=== PATIENT | female | born 1935 | race Caucasian/White ===

== ENCOUNTER 2016-08-31 13:20 | Inpatient (IN) | payer MEDICARE ==
[~2016-08-31] VITALS: Ht 157.5 cm; Wt 55.9 kg
[~2016-08-31 13:20] MED LIST: CARV3.122 PO; GABA800T2 PO; MUPI15CR TP; OXYC30TA PO
[2016-08-31 15:35] VITALS: BP 142/71
[2016-08-31] MEDS ORDERED: MORPHINE SULFATE 10 MG/ML VIAL. SQ PRN (16:30)
[2016-08-31] MEDS ORDERED: POLYETHYLENE GLYCOL 3350 17 GM PACKET. PO PRN (16:30)
[2016-08-31] MEDS ORDERED: ACETAMINOPHEN 500 MG TABLET PO PRN (16:30)
[2016-08-31] MEDS ORDERED: DOCUSATE SODIUM 100 MG CAPSULE PO PRN (16:30)
[2016-08-31] MEDS ORDERED: NITROGLYCERIN SUBLINGUAL 0.4 MG BOTTLE OF 25. SL PRN (16:30)
[2016-08-31] MEDS ORDERED: ONDANSETRON PF 4 MG/2 ML VIAL. IV PRN (16:30)
[2016-08-31] MEDS ORDERED: DOCU250C PO (17:50)
[2016-08-31] MEDS ORDERED: ACET500T33 PO (17:50)
[2016-08-31] MEDS ORDERED: ASPI-482 PO (17:50)
[2016-08-31] MEDS ORDERED: MIRA25TA PO (17:50)
[2016-08-31] MEDS ORDERED: ALPR1TAB6 PO (17:50)
[2016-08-31] MEDS ORDERED: CYCL10TA2 PO (17:50)
[2016-08-31] MEDS ORDERED: FERR-26 PO (17:50)
[2016-08-31] MEDS ORDERED: NITR0.4T SL (17:50)
[2016-08-31] MEDS ORDERED: POLY17PO5 PO (17:50)
[2016-08-31] MEDS ORDERED: POTA10TA10 PO (17:50)
[2016-08-31] MEDS ORDERED: FENT1PAT17 TD (17:50)
[2016-08-31] MEDS ORDERED: CEPH-264 PO (17:50)
[2016-08-31] MEDS ORDERED: FURO-68 PO (17:50)
[2016-08-31 18:49] LABS: BASO # 0.1 x10^3/uL (0.0-0.2); BASO % 0 % (0-3); EOS % 1 % (0-3); HEMATOCRIT 24.1 % (36.0-47.0); HEMOGLOBIN 7.3 g/dL (12.0-15.5); LYMPH # 0.9 x10^3/uL (1.0-4.8); LYMPH % 7 % (24-48); MEAN CORPUSCULAR HEMOGLOBIN 20 pg (25-35); MEAN CORPUSCULAR HGB CONC 30 g/dL (31-37); MEAN CORPUSCULAR VOLUME 67 fL (79-100); MONO % 5 % (0-9); NEUT % 87 % (31-73); PLATELET COUNT 506 x10^3/uL (140-400); RED BLOOD COUNT 3.58 x10^6/uL (3.50-5.40); RED CELL DISTRIBUTION WIDTH 19.3 % (11.5-14.5); WHITE BLOOD COUNT 14.2 x10^3/uL (4.0-11.0)
[2016-08-31 19:00] VITALS: BP 118/68
[2016-08-31] MEDS: CARVEDILOL 3.125 MG TABLET PO SCH (19:00)
[2016-08-31 19:05] LABS: % SAT IRON 4 % (15-34); IRON,SERUM 8 ug/dL (50-170)
[2016-08-31 19:17] LABS: ALBUMIN 2.2 g/dL (3.4-5.0); ALBUMIN/GLOBULIN RATIO 0.6 (1.0-1.7); CALCIUM 8.5 mg/dL (8.5-10.1); CREATININE 0.6 mg/dL (0.6-1.0); GFR 95.7; POTASSIUM 3.5 mmol/L (3.5-5.1); TOTAL BILIRUBIN 0.3 mg/dL (0.2-1.0)
[2016-08-31] MEDS: OXYCODONE IR 5 MG TABLET. PO PRN (19:20)
[2016-08-31 19:28] LABS: % EOS 1 % (0-5); ANISOCYTOSIS SLIGHT; HYPOCHROMIA MARKED; PLT ESTIMATE INCREASED (ADEQUATE); POIKILOCYTOSIS SLIGHT
[2016-08-31 19:29] LABS: MICROCYTOSIS MARKED; OVALOCYTES OCC
[2016-08-31] MEDS: VANCOMYCIN PER PHARMACY MC PRN (19:44)
[2016-08-31] MEDS: VANCOMYCIN 750 MG in IV NORMAL SALINE 250ML 250 ML IV SCH (20:25)
[2016-08-31] MEDS: ALPRAZOLAM 1 MG TABLET PO PRN (20:31)
[2016-08-31] MEDS: GABAPENTIN 400 MG CAPSULE. PO SCH (20:31)
[2016-08-31] MEDS: MEROPENEM 500 MG in IV NORMAL SALINE 50ML 50 ML IV SCH (21:59)
[2016-08-31] MEDS: METRONIDAZOLE 500mg PREMIX 100 ML IV SCH (21:59)
[2016-08-31 23:14] VITALS: BP 110/63
[2016-09-01 03:00] VITALS: BP 108/55
[2016-09-01] MEDS: METRONIDAZOLE 500mg PREMIX 100 ML IV SCH (05:12)
[2016-09-01] MEDS: MEROPENEM 500 MG in IV NORMAL SALINE 50ML 50 ML IV SCH ×3 (05:13→22:00)
[2016-09-01 07:00] VITALS: BP 100/50
[2016-09-01] MEDS: POTASSIUM CHLORIDE 20 MEQ TABLET.ER. PO SCH (08:00)
[2016-09-01] MEDS: CARVEDILOL 3.125 MG TABLET PO SCH ×2 (08:00→18:56)
[2016-09-01] MEDS: FENTANYL 50MCG/HR PATCH. TD SCH (08:43)
--- NOTE | 2016-09-01 08:49 | PDOC2 ---
AGATHA NERI Mel SOFTWARE DEVELOPMENT TEST ENGINEER 09/01/16 0849: CONSULT Date of Consult Date of Consult DATE: 09/01/16 TIME: 08:41 Reason for Consult Reason for Consult: changes to splenic flexure Referring Physician Referring Physician: Dr ulloa Identification/Chief Complaint Chief Complaint UTI, back pain Source Source: Caregiver, Chart review, Patient History of Present Illness Reason for Visit: Confusion in patient, I spoke with her daughter Laura on the phone(no dementia, however does become acutely confused with UTI/s). 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 On Thursday she complained of worsening back pain and generalized abdominal pain. Her daughter was concerned worsening UTI. Chronic constipation, last BM small thursday. She has not had a colonoscopy, refused in past. No nausea or emesis, low appetite but still eating Past Medical History Cardiovascular: CAD, HTN, ND Musculoskeletal: low back pain Past Surgical History Past Surgical History: Hysterectomy, Other (exploratory laparotomy, many years ago, daughter not sure for what) Family History Family History: Other (no colon cancer, IBD daughter is aware of) Social History No ALCOHOL: none Drugs: None Lives: with Family Current Medications Current Medications Current Medications Oxycodone HCl (Roxicodone) 20 mg PRN Q8HRS PRN PO PAIN Last administered on 19:20; Start 08/31/16 at 16:30 Furosemide (Lasix) 40 mg DAILY PO ; Start 09/01/16 at 09:00 Carvedilol (Coreg) 3.125 mg BIDWMEALS PO ; Start 08/31/16 at 19:00 Alprazolam (Xanax) 1 mg PRN Q6HRS PRN PO ANXIETY / AGITATION Last administered on 08/31/16 20:31; Start 08/31/16 at 16:30 Gabapentin (Neurontin) 400 mg BID PO Last administered on 08/31/16 20:31; Start 08/31/16 at 21:00 Docusate Sodium (Colace) 100 mg PRN QHS PRN PO CONSTIPATION; Start 08/31/16 at 16:30 Acetaminophen (Tylenol) 500 mg PRN Q4HRS PRN PO MILD PAIN / TEMP; Start at 16:30 Fentanyl (Duragesic 50mcg/ Hr Patch) 1 patch Q3DAYS TD ; Start 09/01/16 at 09:00 Fentanyl Citrate 50 mcg 50 mcg PRN Q3HRS PRN IV PAIN; Start 08/31/16 at 16:30 Meropenem 500 mg/ Sodium Chloride 50 ml @ 100 mls/hr Q8HRS IV Last administered on 09/01/16 05:13; Start 08/31/16 at 22:00 Metronidazole (FLAGYL 500Mmg PREMIX) 100 ml @ 100 mls/hr Q8HRS IV Last administered on 09/01/16 05:12; Start 08/31/16 at 22:00 Mirabegron (Myrbetriq) 25 mg DAILY PO ; Start 09/01/16 at 09:00 Morphine Sulfate 5 mg PRN QID PRN SQ PAIN; Start 08/31/16 at 16:30 Nitroglycerin (Nitrostat) 0.4 mg PRN Q15MIN PRN SL CHEST PAIN; Start 08/31/16 at 16:30 Ondansetron HCl (Zofran) 4 mg PRN Q4HRS PRN IV NAUSEA/VOMITING; Start 08/31/16 at 16:30 Polyethylene Glycol (miraLAX PACKET) 17 gm PRN DAILY PRN PO CONSTIPATION; Start 08/31/16 at 16:30 Potassium Chloride (Klor-Con) 20 meq DAILYWBKFT PO ; Start 09/01/16 at 08:00 Vancomycin HCl 1 each 1 each PRN DAILY PRN MC SEE COMMENTS Last administered on 08/31/16 19:44; Start 08/31/16 at 16:30 Vancomycin HCl/ Sodium Chloride (Iv Sodium Chloride 0.9% 250ml) 250 ml @ 250 mls/hr Q24H IV Last administered on 08/31/16 20:25; Start 08/31/16 at 20:00 Vancomycin HCl 1 each 1X ONCE MC ; Start 09/01/16 at 19:30; Stop 09/01/16 at 19 :31 Non-Formulary Medication 1 ea DAILY PO ; Start 09/01/16 at 09:00; Status UNV Active Scripts Active Reported Miralax (Polyethylene Glycol 3350) 17 Gm Powd.pack 1 Packet PO DAILY PRN FENTANYL 50mcg/hr (Fentanyl) 1 Each Patch.td72 1 Patch TD Q72H Myrbetriq (Mirabegron) 25 Mg Tab.er.24h 25 Mg PO DAILY Tylenol Extra Strength (Acetaminophen) 500 Mg Tablet 500 Mg PO PRN Docusate Sodium 250 Mg Capsule 250 Mg PO HS Alprazolam 1 Mg Tablet 1 Mg PO PRN Q6HRS PRN Cyclobenzaprine Hcl 10 Mg Tablet 1 Tab PO TID PRN Aspir 81 (Aspirin) 81 Mg Tablet.dr 1 Tab PO DAILY Lasix (Furosemide) 40 Mg Tablet 1 Tab PO DAILY Ferrous Sulfate 325 Mg Tablet 65 Mg PO DAILY Potassium Chloride 10 Meq Tablet.er 20 Meq PO DAILY Nitrostat (Nitroglycerin) 0.4 Mg Tab.subl 0.4 Mg SL PRN Q5MIN PRN Keflex (Cephalexin) 500 Mg Capsule 1 Cap PO TID Carvedilol 3.125 Mg Tablet 3.125 Mg PO BIDWMEALS Gabapentin 800 Mg Tablet 800 Mg PO TID Oxycodone Hcl 30 Mg Tablet 20 Mg PO PRN Q8HRS PRN Bactroban Cream (Mupirocin) 15 Gm Cream..g. 1 Tushar TP DAILY Allergies Allergies: Coded Allergies: Penicillins (Verified Allergy, Intermediate, Swelling, 08/31/16) amoxicillin (Verified Allergy, Intermediate, Swelling, 08/31/16) morphine (Verified Adverse Reaction, Intermediate, "makes her crazy", 08/31) "makes her crazy" ROS Review of System unable to obtain from patient due to mental status Physical Exam General: Cooperative, No acute distress HEENT: PERRLA, Mucous membr. moist/pink Lungs: Clear to auscultation, Normal air movement Heart: Regular rate, Normal S1, Normal S2, No murmurs Abdomen: Soft, Other (ND, mild tenderness to right lower abdomen, midline scar present) Extremities: No clubbing, No cyanosis Skin: No rashes, No breakdown Neuro: Normal speech, Sensation intact MUSCULOSKELETAL: No deformity, No swelling Vitals VITALS Vital Signs Date Time Temp Pulse Resp B/P Pulse Ox O2 Delivery O2 Flow Rate FiO2 09/01/16 07:00 98.5 75 16 100/50 93 Room Air 98.5 Labs Labs Laboratory Tests Test 08/31/16 18:30 White Blood Count 14.2x10^3/uL (4.0-11.0) Red Blood Count 3.58x10^6/uL (3.50-5.40) Hemoglobin 7.3g/dL (12.0-15.5) Hematocrit 24.1% (36.0-47.0) Mean Corpuscular Volume 67fL (79-100) Mean Corpuscular Hemoglobin 20pg (25-35) Mean Corpuscular Hemoglobin Concent 30g/dL (31-37) Red Cell Distribution Width 19.3% (11.5-14.5) Platelet Count 506x10^3/uL (140-400) Neutrophils (%) (Auto) 87% (31-73) Lymphocytes (%) (Auto) 7% (24-48) Monocytes (%) (Auto) 5% (0-9) Eosinophils (%) (Auto) 1% (0-3) Basophils (%) (Auto) 0% (0-3) Neutrophils # (Auto) 12.3x10^3uL (1.8-7.7) Lymphocytes # (Auto) 0.9x10^3/uL (1.0-4.8) Monocytes # (Auto) 0.7x10^3/uL (0.0-1.1) Eosinophils # (Auto) 0.2x10^3/uL (0.0-0.7) Basophils # (Auto) 0.1x10^3/uL (0.0-0.2) Segmented Neutrophils % 90% (35-66) Band Neutrophils % 2% (0-9) Lymphocytes % 6% (24-48) Monocytes % 1% (0-10) Eosinophils % 1% (0-5) Platelet Estimate Increased (ADEQUATE) Hypochromasia Marked Poikilocytosis Slight Anisocytosis Slight Microcytosis Marked Ovalocytes Occ Sodium Level 135mmol/L (136-145) Potassium Level 3.5mmol/L (3.5-5.1) Chloride Level 99mmol/L (98-107) Carbon Dioxide Level 27mmol/L (21-32) Anion Gap 9 (6-14) Blood Urea Nitrogen 7mg/dL (7-20) Creatinine 0.6mg/dL (0.6-1.0) Estimated GFR (Cockcroft-Gault) 95.7 BUN/Creatinine Ratio 12 (6-20) Glucose Level 110mg/dL (70-99) Calcium Level 8.5mg/dL (8.5-10.1) Iron Level 8ug/dL (50-170) Total Iron Binding Capacity 220ug/dL (250-450) Iron Saturation 4% (15-34) Ferritin 35ng/mL (8-252) Total Bilirubin 0.3mg/dL (0.2-1.0) Aspartate Amino Transf (AST/SGOT) 7U/L (15-37) Alanine Aminotransferase (ALT/SGPT) 11U/L (14-59) Alkaline Phosphatase 112U/L (46-116) Total Protein 6.0g/dL (6.4-8.2) Albumin 2.2g/dL (3.4-5.0) Albumin/Globulin Ratio 0.6 (1.0-1.7) Laboratory Tests Test 08/31/16 18:30 White Blood Count 14.2x10^3/uL (4.0-11.0) Red Blood Count 3.58x10^6/uL (3.50-5.40) Hemoglobin 7.3g/dL (12.0-15.5) Hematocrit 24.1% (36.0-47.0) Mean Corpuscular Volume 67fL (79-100) Mean Corpuscular Hemoglobin 20pg (25-35) Mean Corpuscular Hemoglobin Concent 30g/dL (31-37) Red Cell Distribution Width 19.3% (11.5-14.5) Platelet Count 506x10^3/uL (140-400) Neutrophils (%) (Auto) 87% (31-73) Lymphocytes (%) (Auto) 7% (24-48) Monocytes (%) (Auto) 5% (0-9) Eosinophils (%) (Auto) 1% (0-3) Basophils (%) (Auto) 0% (0-3) Neutrophils # (Auto) 12.3x10^3uL (1.8-7.7) Lymphocytes # (Auto) 0.9x10^3/uL (1.0-4.8) Monocytes # (Auto) 0.7x10^3/uL (0.0-1.1) Eosinophils # (Auto) 0.2x10^3/uL (0.0-0.7) Basophils # (Auto) 0.1x10^3/uL (0.0-0.2) Segmented Neutrophils % 90% (35-66) Band Neutrophils % 2% (0-9) Lymphocytes % 6% (24-48) Monocytes % 1% (0-10) Eosinophils % 1% (0-5) Platelet Estimate Increased (ADEQUATE) Hypochromasia Marked Poikilocytosis Slight Anisocytosis Slight Microcytosis Marked Ovalocytes Occ Sodium Level 135mmol/L (136-145) Potassium Level 3.5mmol/L (3.5-5.1) Chloride Level 99mmol/L (98-107) Carbon Dioxide Level 27mmol/L (21-32) Anion Gap 9 (6-14) Blood Urea Nitrogen 7mg/dL (7-20) Creatinine 0.6mg/dL (0.6-1.0) Estimated GFR (Cockcroft-Gault) 95.7 BUN/Creatinine Ratio 12 (6-20) Glucose Level 110mg/dL (70-99) Calcium Level 8.5mg/dL (8.5-10.1) Iron Level 8ug/dL (50-170) Total Iron Binding Capacity 220ug/dL (250-450) Iron Saturation 4% (15-34) Ferritin 35ng/mL (8-252) Total Bilirubin 0.3mg/dL (0.2-1.0) Aspartate Amino Transf (AST/SGOT) 7U/L (15-37) Alanine Aminotransferase (ALT/SGPT) 11U/L (14-59) Alkaline Phosphatase 112U/L (46-116) Total Protein 6.0g/dL (6.4-8.2) Albumin 2.2g/dL (3.4-5.0) Albumin/Globulin Ratio 0.6 (1.0-1.7) Assessment/Plan Assessment/Plan UTI, chronic back pain compression fracture CT findings--Aneurysmal change of the splenic flexure of the colon. This is nonspecific and can be secondary to chronic inflammation or a walled off perforation or lymphoma. Occasionally adenocarcinoma or metastatic cancer can causes appearance leukocytosis, wbc 14 anemia, chronic 7.[address] Mtz, GI consulted ALEX MTZ MD 09/01/16 1316: CONSULT Allergies Allergies: Coded Allergies: Penicillins (Verified Allergy, Intermediate, Swelling, 08/31/16) amoxicillin (Verified Allergy, Intermediate, Swelling, 08/31/16) morphine (Verified Adverse Reaction, Intermediate, "makes her crazy", 08/31) "makes her crazy" Assessment/Plan Assessment/Plan Reviewed, pt seen and examined independently by myself; Pts daughter and son in law present. Pt complains of back pain and left abdominal pain. The abdominal pain seems new and present over the last couple of days. Remainder of HPI noted; PMH/PSH/ROS/SH as above; exam: alert, oriented, no scleral icterus, no neck masses, lungs clear, heart RR and R, abdomen soft, tender with palpation in L side, no peritoneal signs, ext neg for edema. Labs and CT scan reviewed; focal abnormality in segment of left colon, ?etiology unknown. Recommend further evaluation, preferably with colonoscopy. GI following and defer to them AGATHA NERI APRN Sep 01, 2016 08:49 ALEX MTZ MD Sep 01, 2016 13:16
[2016-09-01] MEDS ORDERED: NON FORMULARY ITEM PO SCH (09:00)
[2016-09-01] MEDS: GABAPENTIN 400 MG CAPSULE. PO SCH ×3 (09:00→21:00)
[2016-09-01] MEDS: FUROSEMIDE 40 MG TABLET PO SCH (09:00)
[2016-09-01] MEDS: MIRABEGRON 25 MG TAB.ER.24H PO SCH (09:00)
--- NOTE | 2016-09-01 10:14 | PDOC2 ---
GI CONSULT Reason For Consult: Splenic flexure inflammation HPI: HPI: History from chart and staff as pt is confused and alone in room. 80 y/o female transferred from [facility] where she was seen for worsening back pain and UTI symptoms. CTs showed aneurysmal change on splenic flexure of the colon (ddx: non-specific, ?2/2 chronic inflammation or walled of perforation or lymphoma, or possibly adenocarcinoma or metastatic cancer) and T12 vertebral body compression fracture. Labs: WBC 14.2, Hgb 7.3, plt 506, iron 8, TIBC 220, sat 4. Home meds show ASA, iron. IR and surgery are also following. 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 Per RN, c/o back and leg pain this morning. Per chart, some decreased appetite w/o n/v and h/o constipation w/ last BM on 08/29. No reports of bleeding. No previous colonoscopy. PMH: PMH: spinal aneurysm, CA, HTN, CAD s/p stents, anxiety, back pain, UTIs/urinary incontinence w/ catheter, hysterectomy, exploratory lap FH: Family History: Cancer (no GI cancers) Social History: Smoke: No ALCOHOL: none Drugs: None ROS: GI: Per HPI : +dysuria NEURO: +confusion MSK: +pain VItals: Vitals: Vital Signs Date Time Temp Pulse Resp B/P Pulse Ox O2 Delivery O2 Flow Rate FiO2 09/01/16 07:00 98.5 75 16 100/50 93 Room Air 98.5 Labs: Labs: Laboratory Tests Test 08/31/16 18:30 White Blood Count 14.2x10^3/uL (4.0-11.0) Red Blood Count 3.58x10^6/uL (3.50-5.40) Hemoglobin 7.3g/dL (12.0-15.5) Hematocrit 24.1% (36.0-47.0) Mean Corpuscular Volume 67fL (79-100) Mean Corpuscular Hemoglobin 20pg (25-35) Mean Corpuscular Hemoglobin Concent 30g/dL (31-37) Red Cell Distribution Width 19.3% (11.5-14.5) Platelet Count 506x10^3/uL (140-400) Neutrophils (%) (Auto) 87% (31-73) Lymphocytes (%) (Auto) 7% (24-48) Monocytes (%) (Auto) 5% (0-9) Eosinophils (%) (Auto) 1% (0-3) Basophils (%) (Auto) 0% (0-3) Neutrophils # (Auto) 12.3x10^3uL (1.8-7.7) Lymphocytes # (Auto) 0.9x10^3/uL (1.0-4.8) Monocytes # (Auto) 0.7x10^3/uL (0.0-1.1) Eosinophils # (Auto) 0.2x10^3/uL (0.0-0.7) Basophils # (Auto) 0.1x10^3/uL (0.0-0.2) Segmented Neutrophils % 90% (35-66) Band Neutrophils % 2% (0-9) Lymphocytes % 6% (24-48) Monocytes % 1% (0-10) Eosinophils % 1% (0-5) Platelet Estimate Increased (ADEQUATE) Hypochromasia Marked Poikilocytosis Slight Anisocytosis Slight Microcytosis Marked Ovalocytes Occ Sodium Level 135mmol/L (136-145) Potassium Level 3.5mmol/L (3.5-5.1) Chloride Level 99mmol/L (98-107) Carbon Dioxide Level 27mmol/L (21-32) Anion Gap 9 (6-14) Blood Urea Nitrogen 7mg/dL (7-20) Creatinine 0.6mg/dL (0.6-1.0) Estimated GFR (Cockcroft-Gault) 95.7 BUN/Creatinine Ratio 12 (6-20) Glucose Level 110mg/dL (70-99) Calcium Level 8.5mg/dL (8.5-10.1) Iron Level 8ug/dL (50-170) Total Iron Binding Capacity 220ug/dL (250-450) Iron Saturation 4% (15-34) Ferritin 35ng/mL (8-252) Total Bilirubin 0.3mg/dL (0.2-1.0) Aspartate Amino Transf (AST/SGOT) 7U/L (15-37) Alanine Aminotransferase (ALT/SGPT) 11U/L (14-59) Alkaline Phosphatase 112U/L (46-116) Total Protein 6.0g/dL (6.4-8.2) Albumin 2.2g/dL (3.4-5.0) Albumin/Globulin Ratio 0.6 (1.0-1.7) Allergies: Coded Allergies: Penicillins (Verified Allergy, Intermediate, Swelling, 08/31/16) amoxicillin (Verified Allergy, Intermediate, Swelling, 08/31/16) morphine (Verified Adverse Reaction, Intermediate, "makes her crazy", 08/31) "makes her crazy" Medications: Current Medications Medications (Trade) Dose Ordered Sig/Kellee Route PRN Reason Start Time Stop Time Status Last Admin Dose Admin Oxycodone HCl (Roxicodone) 20 mg PRN Q8HRS PRN PO PAIN 08/31/16 16:30 08/31/16 19:20 Alprazolam (Xanax) 1 mg PRN Q6HRS PRN PO ANXIETY / AGITATION 08/31/16 16:30 08/31/16 20:31 Gabapentin (Neurontin) 400 mg BID PO 08/31/16 21:00 08/31/16 20:31 Fentanyl 1 patch 1 patch Q3DAYS TD 09/01/16 09:00 09/01/16 08:43 Meropenem 500 mg/ Sodium Chloride 50 ml @ 100 mls/hr Q8HRS IV 08/31/16 22:00 09/01/16 05:13 Metronidazole (FLAGYL 500Mmg PREMIX) 100 ml @ 100 mls/hr Q8HRS IV 08/31/16 22:00 09/01/16 05:12 Vancomycin HCl 1 each 1 each PRN DAILY PRN MC SEE COMMENTS 08/31/16 16:30 08/31/16 19:44 Vancomycin HCl/ Sodium Chloride (Iv Sodium Chloride 0.9% 250ml) 250 ml @ 250 mls/hr Q24H IV 08/31/16 20:00 08/31/16 20:25 Imaging: Imaging: CT A/P w/ IV contrast 08/30/16 1. Basilar pulmonary infiltrates likely discoid atelectasis. 2. Cholelithiasis w/o cholecystitis. 3. Aneurysmal change on splenic flexure of the colon (ddx: non-specific, ?2/2 chronic inflammation or walled of perforation or lymphoma, or possibly adenocarcinoma or metastatic cancer). CT L-spine 1. T12 vertebral body compression fracture. 2. Moderate degenerate changes and postsurgical changes. PE: GEN: NAD LUNGS: clear anteriorly HEART: S1S2 ABD: BS+, LUQ tender EXTREMITY: No edema NEURO/PSYCH: confused A/P: A/P: Chronic back pain w/ UTI, compression fracture -on atbx, IR consulted Abnormal CT A/P -aneurysmal change on splenic flexure of the colon (ddx: non-specific ?2/2 chronic inflammation or walled of perforation or lymphoma, possibly adenocarcinoma/metastatic cancer) -surgery also following, NPO ROBBIE, leukocytosis H/o constipation CRC screen -no previous colonoscopy -- Will review w/ Dr. Plascencia - needs colonoscopy eventually, concerning for cancer w/ ROBBIE. MAURO BARBA Sep 01, 2016 10:13
[2016-09-01] MEDS ORDERED: GADOBUTROL 7.5 MMOL/7.5 ML VIAL IV ONE (11:15)
[2016-09-01 11:50] VITALS: BP_SYST 51
--- NOTE | 2016-09-01 11:54 | PDOC ---
Provider Note Provider Note IR Note: Asked to consider T12 vertebral augmentation---thank you. 80 YO female with recent onset of significant LBP. MRI this AM revealed acute/subacute T12 compression fracture, which would be amenable to kyphoplasty. Case discussed with Dr Cade. We are in agreement to defer elective kyphoplasty, until UTI and GI issues have been addressed. ID, GI, and General surgery have been consulted. Will follow. JAIME RITTER MD Sep 01, 2016 11:54
--- NOTE | 2016-09-01 11:55 | RAD ---
MR LUMBAR SPINE HISTORY:prior study PMIC....GAVE 5ML GADAVIST...PT C/O LBP AND EVAL T12 COMP FXReason: T 12 compression fx;nurse to cancel and reorder for 09/01. Instructions: / History: COMPARISON: MRI lumbar spine from 05/28/2016 Technique: Sagittal T2, sagittal STIR, and sagittal T1-weighted images were obtained. Additional axial T1 and T2 weighted imaging was also performed. Post contrast T1 weighted images were performed after intravenous administration of gadolinium based contrast. FINDINGS: There is a superior endplate compression fracture at T12 with very mild volume loss. There is no retropulsion. Edema is noted suggesting that this is an acute process. No other compression fractures are identified. There is retrolisthesis of L4 on L5. There is subtle grade 1 anterolisthesis of L5 on S1. Visualized intra-abdominal contents demonstrates cholelithiasis. There is also a left renal cortical cyst. Again noted is a ventral epidural cyst that extends from the level of L2 superiorly beyond the field of view into the thoracic spinal canal. This is unchanged compared to the previous exam from 05/28/2016. Decompressive laminectomies have been performed from T12-L4. The ventral epidural cyst causes narrowing of the [place] thecal sac which is most pronounced at the level of L2 where there is near complete effacement of the subarachnoid space. At L4-L5 there is retrolisthesis. There is moderate bilateral lateral recess stenosis worse on the right. Correlate for L5 radiculopathy worse on the right. Impression: Acute superior endplate compression deformity at T12 with very mild volume loss and no retropulsion. Unchanged ventral epidural cystic mass which causes some narrowing of the [place] thecal sac that is most pronounced at the level of L2 where there is near complete effacement of the subarachnoid space. Degenerative disc disease greatest at L4-5 and L5-S1. Details per level as above. Electronically signed by: Feliciano Gardner (Sep 01, 2016 11:53:50)
--- NOTE | 2016-09-01 12:29 | PDOC ---
Infectious Disease Note ROS ROS GEN: Denies fevers, chills, sweats HEENT: Denies blurred vision, sore throat CV: Denies chest pain RESP: Denies shortness of air, cough GI: Denies n/v/d NEURO: Denies confusion, dizziness MSK: Denies weakness, joint pain/swelling Vital Sign Vital Signs Vital Signs Date Time Temp Pulse Resp B/P Pulse Ox O2 Delivery O2 Flow Rate FiO2 09/01/16 08:00 Room Air 09/01/16 08:00 100/50 09/01/16 07:00 98.5 75 16 93 98.5 Physical Exam PHYSICAL EXAM GENERAL: NAD, Alert HEENT: PERRL, OC/OP NECK: Supple, no JVD, no LN LUNGS: Clear HEART: S1S2, no gallop, no murmur ABD: Soft, NT, no organomegaly, no rebound EXT: No edema, no cyanosis ASBESTOS SIDING INSTALLER: Alert, oriented x 3, no focal neurologic deficit SKIN: No rash IV: ok Labs Lab Laboratory Tests Test 08/31/16 18:30 White Blood Count 14.2x10^3/uL (4.0-11.0) Red Blood Count 3.58x10^6/uL (3.50-5.40) Hemoglobin 7.3g/dL (12.0-15.5) Hematocrit 24.1% (36.0-47.0) Mean Corpuscular Volume 67fL (79-100) Mean Corpuscular Hemoglobin 20pg (25-35) Mean Corpuscular Hemoglobin Concent 30g/dL (31-37) Red Cell Distribution Width 19.3% (11.5-14.5) Platelet Count 506x10^3/uL (140-400) Neutrophils (%) (Auto) 87% (31-73) Lymphocytes (%) (Auto) 7% (24-48) Monocytes (%) (Auto) 5% (0-9) Eosinophils (%) (Auto) 1% (0-3) Basophils (%) (Auto) 0% (0-3) Neutrophils # (Auto) 12.3x10^3uL (1.8-7.7) Lymphocytes # (Auto) 0.9x10^3/uL (1.0-4.8) Monocytes # (Auto) 0.7x10^3/uL (0.0-1.1) Eosinophils # (Auto) 0.2x10^3/uL (0.0-0.7) Basophils # (Auto) 0.1x10^3/uL (0.0-0.2) Segmented Neutrophils % 90% (35-66) Band Neutrophils % 2% (0-9) Lymphocytes % 6% (24-48) Monocytes % 1% (0-10) Eosinophils % 1% (0-5) Platelet Estimate Increased (ADEQUATE) Hypochromasia Marked Poikilocytosis Slight Anisocytosis Slight Microcytosis Marked Ovalocytes Occ Sodium Level 135mmol/L (136-145) Potassium Level 3.5mmol/L (3.5-5.1) Chloride Level 99mmol/L (98-107) Carbon Dioxide Level 27mmol/L (21-32) Anion Gap 9 (6-14) Blood Urea Nitrogen 7mg/dL (7-20) Creatinine 0.6mg/dL (0.6-1.0) Estimated GFR (Cockcroft-Gault) 95.7 BUN/Creatinine Ratio 12 (6-20) Glucose Level 110mg/dL (70-99) Calcium Level 8.5mg/dL (8.5-10.1) Iron Level 8ug/dL (50-170) Total Iron Binding Capacity 220ug/dL (250-450) Iron Saturation 4% (15-34) Ferritin 35ng/mL (8-252) Total Bilirubin 0.3mg/dL (0.2-1.0) Aspartate Amino Transf (AST/SGOT) 7U/L (15-37) Alanine Aminotransferase (ALT/SGPT) 11U/L (14-59) Alkaline Phosphatase 112U/L (46-116) Total Protein 6.0g/dL (6.4-8.2) Albumin 2.2g/dL (3.4-5.0) Albumin/Globulin Ratio 0.6 (1.0-1.7) Objective Assessment UTI -Proteus d/w micro R to quinolones/Nitrofurantoin/Tetracycline/Bactrim. Cath changed 08/27 Leukocytosis ? reactive ? fracture T12/? Abd mass/UTI/Constipation PCN/Amox allergy - tolerates Keflex Back pain with acute T [address] abdomen Buttock/heal wound - going to wound care Plan Plan of Care Cont Vanc for intra-abdominal and Meropenem D/c flagyl Await Surgical eval F/u labs and cults Local wound care D/w daughter D/w Dr. Cade Thank you # [phone] ABDIAS FIGUEROA MD Sep 01, 2016 12:29
[2016-09-01] MEDS ORDERED: FENTANYL 50MCG/HR PATCH. TD SCH (12:45)
[2016-09-01] MEDS: FENTANYL PF 100 MCG/2 ML VIAL. IV PRN (12:57)
[2016-09-01] MEDS: VANCOMYCIN PER PHARMACY MC PRN ×2 (12:59→20:41)
[2016-09-01] MEDS ORDERED: MUPIROCIN 2 % TOPICAL CREAM 15GM TUBE. TP SCH (13:00)
[2016-09-01] MEDS: AA 2.75%/CALCIUM/LYTES/D5W 1,000 ML IV SCH (14:22)
[2016-09-01 15:04] VITALS: BP 127/59
[2016-09-01] MEDS: ALPRAZOLAM 1 MG TABLET PO PRN (16:14)
[2016-09-01] MEDS: OXYCODONE IR 5 MG TABLET. PO PRN (16:15)
[2016-09-01 19:20] VITALS: BP 111/54
[2016-09-01] MEDS: VANCOMYCIN 750 MG in IV NORMAL SALINE 250ML 250 ML IV SCH ×2 (20:00→21:00)
--- NOTE | 2016-09-01 22:46 | HP ---
ADMIT DATE: HISTORY OF PRESENT ILLNESS: The patient is an 80-year-old female patient whom I have seen yesterday at [facility] where she came to the Emergency Room complaining of back pain. She apparently was seen there in the Emergency Room 3 days prior and diagnosed with UTI and was started on Cipro. She also has history of chronic back pain and apparently her pain has started getting worse over the last 4 days prior to admission to [facility] and she had had a CT scan of her lumbar spine, showed that she has T12 compression fracture. 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 There is air and stool scattered throughout the colon. There has been prior multilevel laminectomy of the spine, no free intraperitoneal fluid or abscess or free intraperitoneal air is seen. The urinary bladder was collapsed around the Almodovar catheter. There is simple cyst anterior to the left kidney and the right kidney appears to be normal, no adrenal masses were seen. She was started on IV vancomycin, Flagyl and meropenem and given the complexity of the multitude of problems, I opted to transfer her to [facility] to consult the infectious disease specialist, the interventional radiologist, general surgeon and miter sawyer as well as the wound care team. PAST MEDICAL HISTORY: Significant for coronary artery disease, hypertension, spinal cord aneurysm, paraparesis, chronic urinary incontinence, chronic indwelling Almodovar catheter, frequent urinary tract infection. PAST SURGICAL HISTORY: Significant for previous laminectomy. ALLERGIES: SHE IS ALLERGIC to PENICILLIN AND AMOXICILLIN. MEDICATIONS: She is currently on the following medications: She is on acetaminophen 500 mg every 4 hours as needed for pain or fever, alprazolam 1 mg every 6 hours as needed for anxiety, aspirin 81 mg once a day, carvedilol 3.125 mg twice a day, cyclobenzaprine 10 mg 3 times a day, docusate sodium 250 mg at bedtime, fentanyl patch 50 mcg per hour topically every 72 hours, ferrous sulfate 325 mg once a day, furosemide 40 mg once a day, gabapentin 800 mg 3 times a day, Myrbetriq 25 mg daily, Bactroban cream applied topically daily, nitroglycerin 0.4 mg every 5 minutes x 3, oxycodone 20 mg every 8 hours, polyethylene glycol 17 grams in 8 ounces of water daily p.r.n. for constipation, potassium chloride 20 mEq once a day. FAMILY HISTORY: Unremarkable. SOCIAL HISTORY: She resides with her daughter who lives in the area and was previously from [place]. She is a nonsmoker, nondrinker. REVIEW OF SYSTEMS: As per history of present illness. PHYSICAL EXAMINATION: GENERAL: When I saw her in the [facility], she was resting flat, comfortably in bed, in no apparent respiratory distress. She continued to complain of pain in her lower back, but denied any other complaints. When I examined her, she looked well and was clearly in no apparent respiratory distress, pale, cachectic, but no jaundice, cyanosis or thyromegaly. No jugular venous distension. No limb edema. VITAL SIGNS: Her heart rate was 81, blood pressure was 100/50, temperature was 98.9, respiratory rate was 16, and oxygen saturation was 93% on room air. HEAD, EYES, NOSE AND THROAT: Showed normocephalic, atraumatic. NECK: Supple. HEART: Showed normal first and second heart sounds with no gallop, rub or murmur. CHEST: Clear to auscultation. No crepitation or rhonchi. ABDOMEN: Scaphoid, soft, nontender. No guarding or rigidity. No organomegaly. Hernial orifices intact. Bowel sounds normal. NEUROLOGIC: She is at times confused; however, all cranial nerves intact. She moves upper extremities to much greater extent than lower extremities. She is mostly bed bound. LABORATORY DATA: Showed a white cell count of 14,200, hemoglobin 7.3, hematocrit 24, MCV 67 and a platelet count of 506,000 with normal manual differential. Her chemistry showed a serum sodium 135, potassium 3.5, chloride 99, bicarbonate 27, anion gap of 9, BUN 7, creatinine 0.6, estimated GFR was 95 mL per minute. Her glucose was 110, calcium was 8.5. Total serum iron was 8. Total iron binding capacity 220. Iron percent saturation was 4%, and serum ferritin was 35. Total bilirubin, AST, ALT, alkaline phosphatase were normal. Total protein was 6, albumin was 2.2. ASSESSMENT: In summary, this is an 80-year-old female patient who came with: 1. Urinary tract infection. 2. Acute T12 compression fracture. 3. 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 She is n.p.o. apparently as recommended by the surgical team and we will continue with some Procalamine and continue IV fluid and pain management and consult the wound care team. NISHANT KUO MD DR: DINORA/gabe JOB#: [id number] / [id number]
[2016-09-01 23:12] VITALS: BP 129/50
[2016-09-02] MEDS: AA 2.75%/CALCIUM/LYTES/D5W 1,000 ML IV SCH ×2 (02:03→15:06)
--- NOTE | 2016-09-02 02:22 | CONS ---
DATE OF CONSULTATION: 09/01/2016 LOCATION: The patient in room 432. REQUESTING PHYSICIAN: Dr. Cade. REASON FOR CONSULTATION: UTI. HISTORY OF PRESENT ILLNESS: The patient is a pleasant 80-year-old female who was living with a chronic Almodovar, is followed by at . She has her Almodovar changed every 2 weeks at home. She presented to [facility] Emergency Room last and was diagnosed with urinary tract infection. Her Almodovar catheter changed on the , was prescribed ciprofloxacin; however, she continued to get worsened, presented back to [facility] on the . She has now been transferred to [facility]. She has undergone a CT scan of the abdomen and pelvis which showed apparently a large epidural fluid collection extending from the visualized thoracic spine, suspicion for a large arachnoid cyst unless there are some concerns for infection. She has been having pain. There was concern there might be a fracture in the area. The CT scan additionally showed aneurysm, change in the splenic flexure of the colon, could be secondary to chronic inflammation or a walled-off perforation or lymphoma. She does have problems with constipation. Upon transfer to [facility], she had a white count of 14.2 with 90 segs and 2 bands. Currently, she is status post MRI and then was having some increased pain. Also, she is very dry and asking for additional water. PAST MEDICAL HISTORY: Positive for coronary artery disease, hypertension, myocardial infarction, low back pain, recurrent urinary tract infection with Almodovar in place. PAST SURGICAL HISTORY: Positive for hysterectomy and history of exploratory lap. REVIEW OF SYSTEMS: Otherwise negative except for mentioned above. ALLERGIES: Listed as PENICILLIN, AMOXICILLIN, but she has tolerated cephalexin. SOCIAL HISTORY: No tobacco or alcohol. Lives with family. FAMILY HISTORY: Essentially noncontributory. CURRENT MEDICATIONS: Include vancomycin, meropenem, metronidazole, fentanyl patch, Xanax, Coreg, Neurontin. PHYSICAL EXAMINATION: VITAL SIGNS: She is afebrile, temperature 99, pulse 81, respirations 18, blood pressure 150/50. CONSTITUTIONAL: She is in no acute distress. She is cooperative. HEENT: Pupils are equal and reactive. Oral cavity, pharynx is clear. NECK: Supple, no JVD. LUNGS: Clear to auscultation. HEART: S1, S2. ABDOMEN: Soft. There is no guarding, there is ____ rebound, mild tenderness in the ____ left side. Almodovar is in place. EXTREMITIES: Without clubbing, cyanosis. She is wearing a boot. SKIN: Warm to touch without signs of rash. NEUROLOGIC: She moves all extremities. PSYCHIATRIC: Affect is appropriate. LABORATORY VALUES: White count 14.2, hemoglobin 7.3, platelets of 506, 90 segs, 2 bands. Glucose 100, creatinine 0.6 and little low liver function test. An MRI performed this morning, acute superior endplate compression, deformity at T12. IMPRESSION: 1. Urinary tract infection, present on admission to [facility]. It is resistant to the quinolones, nitrofurantoin, tetracycline and Bactrim. I did discuss with microbiology today. Her catheter was changed on the . 2. Leukocytosis, questionable reactive, secondary to the fracture T12, questionable abdominal mass, urinary tract infection versus constipation. 3. Penicillin, amoxicillin allergies. She tolerated cephalexin. 4. Back pain with acute T12 fracture. 5. Abnormal CT scan of the abdomen and pelvis as mentioned above. 6. Buttock and heel wounds. Pictures reviewed in the chart. Has been going to wound care. RECOMMENDATIONS: For now, continue vancomycin for intra-abdominal process and the meropenem, but I will discontinue the Flagyl as she has double coverage. Await further surgical evaluation. Follow up on labs and cultures. Continue local wound care and this was discussed with the daughter, discussed with Dr. Cade. Thank you for allowing me to participate in this patient's care. If you have any questions, please do not hesitate to contact me. ABDIAS FIGUEROA MD DR: VEENA/gabe JOB#: [id number] / [id number]
[2016-09-02 03:12] VITALS: BP 103/48
[2016-09-02] MEDS: MEROPENEM 500 MG in IV NORMAL SALINE 50ML 50 ML IV SCH ×3 (05:57→21:20)
[2016-09-02 06:14] LABS: BASO % 0 % (0-3); EOS % 2 % (0-3); HEMATOCRIT 23.8 % (36.0-47.0); HEMOGLOBIN 7.2 g/dL (12.0-15.5); LYMPH # 0.8 x10^3/uL (1.0-4.8); LYMPH % 10 % (24-48); MEAN CORPUSCULAR HEMOGLOBIN 21 pg (25-35); MEAN CORPUSCULAR HGB CONC 30 g/dL (31-37); MEAN CORPUSCULAR VOLUME 68 fL (79-100); MONO % 6 % (0-9); NEUT % 81 % (31-73); PLATELET COUNT 560 x10^3/uL (140-400); RED BLOOD COUNT 3.48 x10^6/uL (3.50-5.40); RED CELL DISTRIBUTION WIDTH 18.8 % (11.5-14.5); WHITE BLOOD COUNT 8.5 x10^3/uL (4.0-11.0)
[2016-09-02 06:38] LABS: ALBUMIN/GLOBULIN RATIO 0.6 (1.0-1.7); CALCIUM 8.7 mg/dL (8.5-10.1); CREATININE 0.6 mg/dL (0.6-1.0); GFR 95.7; POTASSIUM 4.2 mmol/L (3.5-5.1); TOTAL BILIRUBIN 0.3 mg/dL (0.2-1.0); TOTAL PROTEIN 5.4 g/dL (6.4-8.2)
[2016-09-02 07:00] VITALS: BP 164/62
[2016-09-02] MEDS: VANCOMYCIN 750 MG in IV NORMAL SALINE 250ML 250 ML IV SCH ×2 (08:01→21:20)
[2016-09-02] MEDS: OXYCODONE IR 5 MG TABLET. PO PRN ×2 (08:03→16:01)
[2016-09-02] MEDS: MIRABEGRON 25 MG TAB.ER.24H PO SCH (08:04)
[2016-09-02] MEDS: GABAPENTIN 400 MG CAPSULE. PO SCH ×2 (08:04→20:49)
[2016-09-02] MEDS: FUROSEMIDE 40 MG TABLET PO SCH (08:04)
[2016-09-02] MEDS: POTASSIUM CHLORIDE 20 MEQ TABLET.ER. PO SCH (08:04)
[2016-09-02] MEDS: CARVEDILOL 3.125 MG TABLET PO SCH ×2 (08:05→17:53)
--- NOTE | 2016-09-02 08:21 | PDOC ---
Infectious Disease Note Subjective Subjective Pt c/o right buttocks pain this morning. ROS ROS GEN: Denies fevers, chills, sweats HEENT: Denies blurred vision, sore throat CV: Denies chest pain RESP: Denies shortness of air, cough GI: Denies n/v/d NEURO: Denies confusion, dizziness MSK: Denies weakness, joint pain/swelling Vital Sign Vital Signs Vital Signs Date Time Temp Pulse Resp B/P Pulse Ox O2 Delivery O2 Flow Rate FiO2 09/02/16 08:05 69 164/62 09/02/16 08:03 Room Air 09/02/16 03:12 98.4 18 96 98.4 Physical Exam PHYSICAL EXAM GENERAL: NAD, Alert HEENT: PERRL, OC/OP -clear NECK: Supple, no JVD, no LN LUNGS: Clear HEART: S1S2, no gallop, no murmur ABD: Soft, NT, no organomegaly, no rebound/guard EXT: No edema, no cyanosis RESIDENTIAL DIRECT SUPPORT PROFESSIONAL: Alert, no focal neurologic deficit SKIN: No rash IV: ok Labs Lab Laboratory Tests Test 09/01/16 19:30 09/02/16 05:40 Vancomycin Level Trough 6.3mcg/mL (10.0-20.0) Vancomycin Last Dose Date 08/31/16 Vancomycin Last Dose Time 1999 White Blood Count 8.5x10^3/uL (4.0-11.0) Red Blood Count 3.48x10^6/uL (3.50-5.40) Hemoglobin 7.2g/dL (12.0-15.5) Hematocrit 23.8% (36.0-47.0) Mean Corpuscular Volume 68fL (79-100) Mean Corpuscular Hemoglobin 21pg (25-35) Mean Corpuscular Hemoglobin Concent 30g/dL (31-37) Red Cell Distribution Width 18.8% (11.5-14.5) Platelet Count 560x10^3/uL (140-400) Neutrophils (%) (Auto) 81% (31-73) Lymphocytes (%) (Auto) 10% (24-48) Monocytes (%) (Auto) 6% (0-9) Eosinophils (%) (Auto) 2% (0-3) Basophils (%) (Auto) 0% (0-3) Neutrophils # (Auto) 6.9x10^3uL (1.8-7.7) Lymphocytes # (Auto) 0.8x10^3/uL (1.0-4.8) Monocytes # (Auto) 0.5x10^3/uL (0.0-1.1) Eosinophils # (Auto) 0.2x10^3/uL (0.0-0.7) Basophils # (Auto) 0.0x10^3/uL (0.0-0.2) Sodium Level 139mmol/L (136-145) Potassium Level 4.2mmol/L (3.5-5.1) Chloride Level 106mmol/L (98-107) Carbon Dioxide Level 27mmol/L (21-32) Anion Gap 6 (6-14) Blood Urea Nitrogen 9mg/dL (7-20) Creatinine 0.6mg/dL (0.6-1.0) Estimated GFR (Cockcroft-Gault) 95.7 BUN/Creatinine Ratio 15 (6-20) Glucose Level 105mg/dL (70-99) Calcium Level 8.7mg/dL (8.5-10.1) Total Bilirubin 0.3mg/dL (0.2-1.0) Aspartate Amino Transf (AST/SGOT) 8U/L (15-37) Alanine Aminotransferase (ALT/SGPT) 6U/L (14-59) Alkaline Phosphatase 92U/L (46-116) Lactate Dehydrogenase 91U/L (81-234) Total Protein 5.4g/dL (6.4-8.2) Albumin 2.0g/dL (3.4-5.0) Albumin/Globulin Ratio 0.6 (1.0-1.7) Objective Assessment UTI -Proteus d/w micro R to quinolones/Nitrofurantoin/Tetracycline/Bactrim. Cath changed 08/27 Leukocytosis ? reactive ? fracture T12/? Abd mass/UTI/Constipation. better PCN/Amox allergy - tolerates Keflex Back pain with acute T [address] abdomen Buttock/heal wound - going to wound care Plan Plan of Care Cont Vanc for intra-abdominal and Meropenem Await Colonoscopy Await Kyphoplasty F/u labs and cults Local wound care ABDIAS FIGUEROA MD Sep 02, 2016 08:20
[2016-09-02] MEDS: VANCOMYCIN PER PHARMACY MC PRN (10:21)
[2016-09-02 11:00] VITALS: BP 123/87
[2016-09-02] MEDS: FENTANYL PF 100 MCG/2 ML VIAL. IV PRN (11:09)
[2016-09-02 11:16] LABS: ANISOCYTOSIS SLIGHT; HYPOCHROMIA MARKED; MICROCYTOSIS MARKED; PLT ESTIMATE INCREASED (ADEQUATE)
--- NOTE | 2016-09-02 13:35 | PDOC ---
Subjective: Subjective: Has pain. Objective: Objective: Per staff - not eating much (clears), small BM. Vital Signs: Vital Signs Date Time Temp Pulse Resp B/P Pulse Ox O2 Delivery O2 Flow Rate FiO2 09/02/16 11:40 Room Air 09/02/16 11:00 98.5 72 20 123/87 94 98.5 Labs: Laboratory Tests Test 09/01/16 19:30 09/02/16 05:40 Vancomycin Level Trough 6.3mcg/mL Vancomycin Last Dose Date 08/31/16 Vancomycin Last Dose Time 1999 White Blood Count 8.5x10^3/uL Red Blood Count 3.48x10^6/uL Hemoglobin 7.2g/dL Hematocrit 23.8% Mean Corpuscular Volume 68fL Mean Corpuscular Hemoglobin 21pg Mean Corpuscular Hemoglobin Concent 30g/dL Red Cell Distribution Width 18.8% Platelet Count 560x10^3/uL Neutrophils (%) (Auto) 81% Lymphocytes (%) (Auto) 10% Monocytes (%) (Auto) 6% Eosinophils (%) (Auto) 2% Basophils (%) (Auto) 0% Neutrophils # (Auto) 6.9x10^3uL Lymphocytes # (Auto) 0.8x10^3/uL Monocytes # (Auto) 0.5x10^3/uL Eosinophils # (Auto) 0.2x10^3/uL Basophils # (Auto) 0.0x10^3/uL Platelet Estimate Increased Large Platelets Occ Hypochromasia Marked Anisocytosis Slight Microcytosis Marked Sodium Level 139mmol/L Potassium Level 4.2mmol/L Chloride Level 106mmol/L Carbon Dioxide Level 27mmol/L Anion Gap 6 Blood Urea Nitrogen 9mg/dL Creatinine 0.6mg/dL Estimated GFR (Cockcroft-Gault) 95.7 BUN/Creatinine Ratio 15 Glucose Level 105mg/dL Calcium Level 8.7mg/dL Total Bilirubin 0.3mg/dL Aspartate Amino Transf (AST/SGOT) 8U/L Alanine Aminotransferase (ALT/SGPT) 6U/L Alkaline Phosphatase 92U/L Lactate Dehydrogenase 91U/L Total Protein 5.4g/dL Albumin 2.0g/dL Albumin/Globulin Ratio 0.6 PE: GEN: NAD LUNGS: clear anteriorly HEART: RRR ABD: LUQ tenderness, BS+ NEURO/PSYCH: maybe some confusion OTHER: daughter present A/P: Chronic back pain w/ UTI, compression fracture -on atbx per ID w/ resolved leukocytosis, possible kyphoplasty w/ IR later on Abnormal CT A/P -aneurysmal change on splenic flexure of the colon (ddx: non-specific ?2/2 chronic inflammation or walled of perforation or lymphoma, possibly adenocarcinoma/metastatic cancer) -no previous colonoscopy ROBBIE -Hgb 7.2 -- Will discuss timing of colonoscopy w/ Dr. Plascencia. Continue clears for now. ( Prep might be a bit difficult w/ back pain, etc.) MAURO BARBA Sep 02, 2016 13:34
--- NOTE | 2016-09-02 13:59 | PDOC ---
AGATHA NERI MULTIMEDIA AUTHOR 09/02/16 1358: SURGICAL PROGRESS NOTE Subjective back pain abdomen tender on exam taking few clears Vital Signs Vital Signs Date Time Temp Pulse Resp B/P Pulse Ox O2 Delivery O2 Flow Rate FiO2 09/02/16 11:40 Room Air 09/02/16 11:00 98.5 72 20 123/87 94 98.5 I&O Intake and Output 09/02/16 07:00 Intake Total 1260 ml Output Total 2150 ml Balance -890 ml Intake Oral 0 ml IV Total 1260 ml Output Urine Total 2150 ml General: Alert, Oriented X3, Cooperative, No acute distress Abdomen: Soft, No masses (tender lower abdomen ) Labs Laboratory Tests Test 08/31/16 18:30 09/01/16 19:30 09/02/16 05:40 White Blood Count 14.2x10^3/uL (4.0-11.0) 8.5x10^3/uL (4.0-11.0) Red Blood Count 3.58x10^6/uL (3.50-5.40) 3.48x10^6/uL (3.50-5.40) Hemoglobin 7.3g/dL (12.0-15.5) 7.2g/dL (12.0-15.5) Hematocrit 24.1% (36.0-47.0) 23.8% (36.0-47.0) Mean Corpuscular Volume 67fL (79-100) 68fL (79-100) Mean Corpuscular Hemoglobin 20pg (25-35) 21pg (25-35) Mean Corpuscular Hemoglobin Concent 30g/dL (31-37) 30g/dL (31-37) Red Cell Distribution Width 19.3% (11.5-14.5) 18.8% (11.5-14.5) Platelet Count 506x10^3/uL (140-400) 560x10^3/uL (140-400) Neutrophils (%) (Auto) 87% (31-73) 81% (31-73) Lymphocytes (%) (Auto) 7% (24-48) 10% (24-48) Monocytes (%) (Auto) 5% (0-9) 6% (0-9) Eosinophils (%) (Auto) 1% (0-3) 2% (0-3) Basophils (%) (Auto) 0% (0-3) 0% (0-3) Neutrophils # (Auto) 12.3x10^3uL (1.8-7.7) 6.9x10^3uL (1.8-7.7) Lymphocytes # (Auto) 0.9x10^3/uL (1.0-4.8) 0.8x10^3/uL (1.0-4.8) Monocytes # (Auto) 0.7x10^3/uL (0.0-1.1) 0.5x10^3/uL (0.0-1.1) Eosinophils # (Auto) 0.2x10^3/uL (0.0-0.7) 0.2x10^3/uL (0.0-0.7) Basophils # (Auto) 0.1x10^3/uL (0.0-0.2) 0.0x10^3/uL (0.0-0.2) Segmented Neutrophils % 90% (35-66) Band Neutrophils % 2% (0-9) Lymphocytes % 6% (24-48) Monocytes % 1% (0-10) Eosinophils % 1% (0-5) Platelet Estimate Increased (ADEQUATE) Increased (ADEQUATE) Hypochromasia Marked Marked Poikilocytosis Slight Anisocytosis Slight Slight Microcytosis Marked Marked Ovalocytes Occ Sodium Level 135mmol/L (136-145) 139mmol/L (136-145) Potassium Level 3.5mmol/L (3.5-5.1) 4.2mmol/L (3.5-5.1) Chloride Level 99mmol/L (98-107) 106mmol/L (98-107) Carbon Dioxide Level 27mmol/L (21-32) 27mmol/L (21-32) Anion Gap 9 (6-14) 6 (6-14) Blood Urea Nitrogen 7mg/dL (7-20) 9mg/dL (7-20) Creatinine 0.6mg/dL (0.6-1.0) 0.6mg/dL (0.6-1.0) Estimated GFR (Cockcroft-Gault) 95.7 95.7 BUN/Creatinine Ratio 12 (6-20) 15 (6-20) Glucose Level 110mg/dL (70-99) 105mg/dL (70-99) Calcium Level 8.5mg/dL (8.5-10.1) 8.7mg/dL (8.5-10.1) Iron Level 8ug/dL (50-170) Total Iron Binding Capacity 220ug/dL (250-450) Iron Saturation 4% (15-34) Ferritin 35ng/mL (8-252) Total Bilirubin 0.3mg/dL (0.2-1.0) 0.3mg/dL (0.2-1.0) Aspartate Amino Transf (AST/SGOT) 7U/L (15-37) 8U/L (15-37) Alanine Aminotransferase (ALT/SGPT) 11U/L (14-59) 6U/L (14-59) Alkaline Phosphatase 112U/L (46-116) 92U/L (46-116) Total Protein 6.0g/dL (6.4-8.2) 5.4g/dL (6.4-8.2) Albumin 2.2g/dL (3.4-5.0) 2.0g/dL (3.4-5.0) Albumin/Globulin Ratio 0.6 (1.0-1.7) 0.6 (1.0-1.7) Vancomycin Level Trough 6.3mcg/mL (10.0-20.0) Vancomycin Last Dose Date 08/31/16 Vancomycin Last Dose Time 1999 Large Platelets Occ Lactate Dehydrogenase 91U/L (81-234) Laboratory Tests Test 09/01/16 19:30 09/02/16 05:40 Vancomycin Level Trough 6.3mcg/mL (10.0-20.0) Vancomycin Last Dose Date 08/31/16 Vancomycin Last Dose Time 1999 White Blood Count 8.5x10^3/uL (4.0-11.0) Red Blood Count 3.48x10^6/uL (3.50-5.40) Hemoglobin 7.2g/dL (12.0-15.5) Hematocrit 23.8% (36.0-47.0) Mean Corpuscular Volume 68fL (79-100) Mean Corpuscular Hemoglobin 21pg (25-35) Mean Corpuscular Hemoglobin Concent 30g/dL (31-37) Red Cell Distribution Width 18.8% (11.5-14.5) Platelet Count 560x10^3/uL (140-400) Neutrophils (%) (Auto) 81% (31-73) Lymphocytes (%) (Auto) 10% (24-48) Monocytes (%) (Auto) 6% (0-9) Eosinophils (%) (Auto) 2% (0-3) Basophils (%) (Auto) 0% (0-3) Neutrophils # (Auto) 6.9x10^3uL (1.8-7.7) Lymphocytes # (Auto) 0.8x10^3/uL (1.0-4.8) Monocytes # (Auto) 0.5x10^3/uL (0.0-1.1) Eosinophils # (Auto) 0.2x10^3/uL (0.0-0.7) Basophils # (Auto) 0.0x10^3/uL (0.0-0.2) Platelet Estimate Increased (ADEQUATE) Large Platelets Occ Hypochromasia Marked Anisocytosis Slight Microcytosis Marked Sodium Level 139mmol/L (136-145) Potassium Level 4.2mmol/L (3.5-5.1) Chloride Level 106mmol/L (98-107) Carbon Dioxide Level 27mmol/L (21-32) Anion Gap 6 (6-14) Blood Urea Nitrogen 9mg/dL (7-20) Creatinine 0.6mg/dL (0.6-1.0) Estimated GFR (Cockcroft-Gault) 95.7 BUN/Creatinine Ratio 15 (6-20) Glucose Level 105mg/dL (70-99) Calcium Level 8.7mg/dL (8.5-10.1) Total Bilirubin 0.3mg/dL (0.2-1.0) Aspartate Amino Transf (AST/SGOT) 8U/L (15-37) Alanine Aminotransferase (ALT/SGPT) 6U/L (14-59) Alkaline Phosphatase 92U/L (46-116) Lactate Dehydrogenase 91U/L (81-234) Total Protein 5.4g/dL (6.4-8.2) Albumin 2.0g/dL (3.4-5.0) Albumin/Globulin Ratio 0.6 (1.0-1.7) Problem List focal abnormality in segment of left colon, ?etiology unknown Gi following, awaiting colonoscopy plans Problems: ALEX MTZ MD 09/02/16 2859: SURGICAL PROGRESS NOTE Assessment/Plan Reviewed, agree with above Problems: AGATHA NERI MULTIMEDIA AUTHOR Sep 02, 2016 13:58 ALEX MTZ MD Sep 02, 2016 16:29
[2016-09-02 15:00] VITALS: BP 113/52
[2016-09-02] MEDS ORDERED: PEG 3350/NA SULF,BICARB,CL/KCL 4,000 ML SOLUTION. PO ONE (16:00)
[2016-09-02 18:43] LABS: HEMATOCRIT 25.2 % (36.0-47.0); HEMOGLOBIN 7.7 g/dL (12.0-15.5)
[2016-09-02 19:00] VITALS: BP 114/59
[2016-09-02] MEDS: ALPRAZOLAM 1 MG TABLET PO PRN ×2 (20:49→20:53)
[2016-09-02 23:00] VITALS: BP 123/60
[2016-09-03] VITALS (12 sets, daily range): BP systolic 101–121; BP diastolic 38–59
[2016-09-03] MEDS: AA 2.75%/CALCIUM/LYTES/D5W 1,000 ML IV SCH (03:28)
[2016-09-03 05:07] LABS: BASO % 1 % (0-3); EOS % 2 % (0-3); HEMATOCRIT 25.2 % (36.0-47.0); HEMOGLOBIN 7.6 g/dL (12.0-15.5); LYMPH # 1.1 x10^3/uL (1.0-4.8); LYMPH % 13 % (24-48); MEAN CORPUSCULAR HEMOGLOBIN 20 pg (25-35); MEAN CORPUSCULAR HGB CONC 30 g/dL (31-37); MEAN CORPUSCULAR VOLUME 67 fL (79-100); MONO % 7 % (0-9); NEUT % 79 % (31-73); PLATELET COUNT 582 x10^3/uL (140-400); RED BLOOD COUNT 3.74 x10^6/uL (3.50-5.40); RED CELL DISTRIBUTION WIDTH 18.5 % (11.5-14.5); WHITE BLOOD COUNT 8.9 x10^3/uL (4.0-11.0)
[2016-09-03 05:40] LABS: ALBUMIN 2.1 g/dL (3.4-5.0); ALBUMIN/GLOBULIN RATIO 0.6 (1.0-1.7); CALCIUM 8.8 mg/dL (8.5-10.1); CREATININE 0.6 mg/dL (0.6-1.0); GFR 95.7; TOTAL BILIRUBIN 0.4 mg/dL (0.2-1.0); TOTAL PROTEIN 5.7 g/dL (6.4-8.2)
[2016-09-03] MEDS: MEROPENEM 500 MG in IV NORMAL SALINE 50ML 50 ML IV SCH ×3 (06:00→21:46)
[2016-09-03] MEDS: POTASSIUM CHLORIDE 20 MEQ TABLET.ER. PO SCH (08:00)
[2016-09-03] MEDS: CARVEDILOL 3.125 MG TABLET PO SCH ×2 (08:00→17:00)
--- NOTE | 2016-09-03 08:44 | PDOC ---
Infectious Disease Note Subjective Subjective ? if bowel prep is working adequately. Has some ? decreased hearing. More comfortable today. Did vomit earlier ROS ROS GEN: Denies fevers, chills, sweats HEENT: Denies blurred vision, sore throat CV: Denies chest pain RESP: Denies shortness of air, cough GI: Denies n/v/d NEURO: Denies confusion, dizziness MSK: Denies weakness, joint pain/swelling Vital Sign Vital Signs Vital Signs Date Time Temp Pulse Resp B/P Pulse Ox O2 Delivery O2 Flow Rate FiO2 09/03/16 07:44 98.3 72 16 112/47 98 Room Air 98.3 Physical Exam PHYSICAL EXAM GENERAL: NAD, Alert, comfortable HEENT: PERRL, OC/OP- clear NECK: Supple, no JVD, no LN LUNGS: Clear HEART: S1S2, no gallop, no murmur ABD: Soft, NT, no organomegaly, no rebound EXT: No edema, no cyanosis CLOTH INSPECTOR: Alert, coop, no focal neurologic deficit SKIN: No rash IV: ok Labs Lab Laboratory Tests Test 09/02/16 18:05 09/03/16 04:30 Hemoglobin 7.7g/dL (12.0-15.5) 7.6g/dL (12.0-15.5) Hematocrit 25.2% (36.0-47.0) 25.2% (36.0-47.0) White Blood Count 8.9x10^3/uL (4.0-11.0) Red Blood Count 3.74x10^6/uL (3.50-5.40) Mean Corpuscular Volume 67fL (79-100) Mean Corpuscular Hemoglobin 20pg (25-35) Mean Corpuscular Hemoglobin Concent 30g/dL (31-37) Red Cell Distribution Width 18.5% (11.5-14.5) Platelet Count 582x10^3/uL (140-400) Neutrophils (%) (Auto) 79% (31-73) Lymphocytes (%) (Auto) 13% (24-48) Monocytes (%) (Auto) 7% (0-9) Eosinophils (%) (Auto) 2% (0-3) Basophils (%) (Auto) 1% (0-3) Neutrophils # (Auto) 7.0x10^3uL (1.8-7.7) Lymphocytes # (Auto) 1.1x10^3/uL (1.0-4.8) Monocytes # (Auto) 0.6x10^3/uL (0.0-1.1) Eosinophils # (Auto) 0.2x10^3/uL (0.0-0.7) Basophils # (Auto) 0.0x10^3/uL (0.0-0.2) Sodium Level 138mmol/L (136-145) Potassium Level 4.0mmol/L (3.5-5.1) Chloride Level 102mmol/L (98-107) Carbon Dioxide Level 29mmol/L (21-32) Anion Gap 7 (6-14) Blood Urea Nitrogen 12mg/dL (7-20) Creatinine 0.6mg/dL (0.6-1.0) Estimated GFR (Cockcroft-Gault) 95.7 BUN/Creatinine Ratio 20 (6-20) Glucose Level 109mg/dL (70-99) Calcium Level 8.8mg/dL (8.5-10.1) Total Bilirubin 0.4mg/dL (0.2-1.0) Aspartate Amino Transf (AST/SGOT) 9U/L (15-37) Alanine Aminotransferase (ALT/SGPT) 6U/L (14-59) Alkaline Phosphatase 95U/L (46-116) Total Protein 5.7g/dL (6.4-8.2) Albumin 2.1g/dL (3.4-5.0) Albumin/Globulin Ratio 0.6 (1.0-1.7) Objective Assessment UTI -Proteus d/w micro R to quinolones/Nitrofurantoin/Tetracycline/Bactrim. Cath changed 08/27. + Kleb also now Res to Amp/Bactrim/Pip Leukocytosis ? reactive ? fracture T12/? Abd mass/UTI/Constipation. better PCN/Amox allergy - tolerates Keflex Back pain with acute T [address] abdomen Buttock/heal wound - going to wound care Decreasing hearing ? Vanc - h/o Gent use and ototoxicity Plan Plan of Care Await colonoscopy later this afternoon hopefully D/cont Vanc with neg blood cult Cont Meropenem Await Kyphoplasty F/u labs and cults Local wound care D/w daughter ABDIAS FIGUEROA MD Sep 03, 2016 08:44
--- NOTE | 2016-09-03 08:55 | PN ---
DATE: 09/02/2016 SUBJECTIVE: The patient is sitting slightly propped up, still complaining of severe back pain. She was seen yesterday by Dr. Yancey and he recommended to defer elective kyphoplasty till her urinary tract infection and GI issues have been addressed. She was seen by the surgical team as well as the director of student financial services and the plan is for her to have colonoscopy. Given the marked dilatation of the splenic flexure and iron deficiency anemia, she was also seen by the Infectious Disease and continued both vancomycin and meropenem and her Flagyl was discontinued. PHYSICAL EXAMINATION: GENERAL: When I saw her this morning, she looked pale, but no jaundice, cyanosis, or thyromegaly. No jugular venous distention. No limb edema. VITAL SIGNS: Her heart rate was 69, blood pressure 164/62. Her temperature was 98.1, respiratory rate 20, and oxygen saturation was 93%. HEAD, EYES, EARS, NOSE AND THROAT: Showed normocephalic, atraumatic. NECK: Supple. HEART: Showed normal first and second heart sounds with no gallop, rub or murmur. CHEST: Clear to auscultation. Chest shows central trachea, equally reduced expansion, reduced air entry ____. Very few crepitation posteriorly basally. ABDOMEN: Slightly distended, soft, nontender. NEUROLOGIC: She is somewhat confused, but otherwise her cranial nerves intact. She moves upper extremities without difficulty. She is mostly bedbound, chair bound. Her intake over the last 24 hours was 1250, output was ____. LABORATORY DATA: As of this morning, her serum sodium was 139, potassium 4.2, chloride 106, bicarbonate 27, anion gap of 6, BUN 9, creatinine 0.9, estimated GFR was 95 mL per minute. Her glucose 105, calcium was 8.7. Her serum iron was only 80. The total iron binding capacity was ____. Iron percent saturation was only 4 and ferritin was ____. Total bilirubin, AST, ALT, alkaline phosphatase were normal. Her total protein was 5.4, albumin 2. White cell count was 8500, hemoglobin 7.2, hematocrit 23.8, MCV 68 and platelet count of 560,000. ASSESSMENT: 1. Urinary tract infection for which she is on meropenem. She did grow Proteus mirabilis that is resistant to quinolone, nitrofurantoin, tetracycline, Bactrim. 2. Acute on chronic back pain and newly diagnosed T12 compression fracture; however, given the infection, the kyphoplasty was postponed. 3. 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 PLAN: To keep her n.p.o., continue with the procalamine, continue with IV antibiotic. Continue with pain management. I will repeat all her labs and await evaluation by the decision by the director of student financial services and all the surgical team. NISHANT KUO MD DR: DINORA/gabe JOB#: [id number] / [id number]
[2016-09-03] MEDS: MIRABEGRON 25 MG TAB.ER.24H PO SCH (09:00)
[2016-09-03] MEDS: GABAPENTIN 400 MG CAPSULE. PO SCH ×2 (09:00→21:00)
[2016-09-03] MEDS: FUROSEMIDE 40 MG TABLET PO SCH (09:00)
[2016-09-03] MEDS: VANCOMYCIN 750 MG in IV NORMAL SALINE 250ML 250 ML IV SCH (09:00)
--- NOTE | 2016-09-03 09:56 | PDOC ---
PROGRESS NOTES Subjective Subjective no new complaints, difficulty hearing Objective Objective Vital Signs Date Time Temp Pulse Resp B/P Pulse Ox O2 Delivery O2 Flow Rate FiO2 09/03/16 07:44 98.3 72 16 112/47 98 Room Air 98.3 Intake and Output 09/03/16 07:00 Intake Total 4390 ml Output Total 4150 ml Balance 240 ml Intake Oral 4340 ml IV Total 50 ml Output Urine Total 2650 ml Stool Total 1500 ml # Bowel Movements 1 Physical Exam Abdomen: Soft (tender with palpation in LUQ) Extremities: No clubbing, No cyanosis General: Alert HEENT: Atraumatic Lungs: Clear to auscultation Assessment Assessment Abdominal pain, CT finding of L colon Plan Plan of Care Colonoscopy today to assess Comment Review of Relevant I have reviewed the following items ryley (where applicable) has been applied. Labs Laboratory Tests Test 09/01/16 19:30 09/02/16 05:40 09/02/16 18:05 09/03/16 04:30 Vancomycin Level Trough 6.3mcg/mL (10.0-20.0) Vancomycin Last Dose Date 08/31/16 Vancomycin Last Dose Time 1999 White Blood Count 8.5x10^3/uL (4.0-11.0) 8.9x10^3/uL (4.0-11.0) Red Blood Count 3.48x10^6/uL (3.50-5.40) 3.74x10^6/uL (3.50-5.40) Hemoglobin 7.2g/dL (12.0-15.5) 7.7g/dL (12.0-15.5) 7.6g/dL (12.0-15.5) Hematocrit 23.8% (36.0-47.0) 25.2% (36.0-47.0) 25.2% (36.0-47.0) Mean Corpuscular Volume 68fL (79-100) 67fL (79-100) Mean Corpuscular Hemoglobin 21pg (25-35) 20pg (25-35) Mean Corpuscular Hemoglobin Concent 30g/dL (31-37) 30g/dL (31-37) Red Cell Distribution Width 18.8% (11.5-14.5) 18.5% (11.5-14.5) Platelet Count 560x10^3/uL (140-400) 582x10^3/uL (140-400) Neutrophils (%) (Auto) 81% (31-73) 79% (31-73) Lymphocytes (%) (Auto) 10% (24-48) 13% (24-48) Monocytes (%) (Auto) 6% (0-9) 7% (0-9) Eosinophils (%) (Auto) 2% (0-3) 2% (0-3) Basophils (%) (Auto) 0% (0-3) 1% (0-3) Neutrophils # (Auto) 6.9x10^3uL (1.8-7.7) 7.0x10^3uL (1.8-7.7) Lymphocytes # (Auto) 0.8x10^3/uL (1.0-4.8) 1.1x10^3/uL (1.0-4.8) Monocytes # (Auto) 0.5x10^3/uL (0.0-1.1) 0.6x10^3/uL (0.0-1.1) Eosinophils # (Auto) 0.2x10^3/uL (0.0-0.7) 0.2x10^3/uL (0.0-0.7) Basophils # (Auto) 0.0x10^3/uL (0.0-0.2) 0.0x10^3/uL (0.0-0.2) Platelet Estimate Increased (ADEQUATE) Large Platelets Occ Hypochromasia Marked Anisocytosis Slight Microcytosis Marked Sodium Level 139mmol/L (136-145) 138mmol/L (136-145) Potassium Level 4.2mmol/L (3.5-5.1) 4.0mmol/L (3.5-5.1) Chloride Level 106mmol/L (98-107) 102mmol/L (98-107) Carbon Dioxide Level 27mmol/L (21-32) 29mmol/L (21-32) Anion Gap 6 (6-14) 7 (6-14) Blood Urea Nitrogen 9mg/dL (7-20) 12mg/dL (7-20) Creatinine 0.6mg/dL (0.6-1.0) 0.6mg/dL (0.6-1.0) Estimated GFR (Cockcroft-Gault) 95.7 95.7 BUN/Creatinine Ratio 15 (6-20) 20 (6-20) Glucose Level 105mg/dL (70-99) 109mg/dL (70-99) Calcium Level 8.7mg/dL (8.5-10.1) 8.8mg/dL (8.5-10.1) Total Bilirubin 0.3mg/dL (0.2-1.0) 0.4mg/dL (0.2-1.0) Aspartate Amino Transf (AST/SGOT) 8U/L (15-37) 9U/L (15-37) Alanine Aminotransferase (ALT/SGPT) 6U/L (14-59) 6U/L (14-59) Alkaline Phosphatase 92U/L (46-116) 95U/L (46-116) Lactate Dehydrogenase 91U/L (81-234) Total Protein 5.4g/dL (6.4-8.2) 5.7g/dL (6.4-8.2) Albumin 2.0g/dL (3.4-5.0) 2.1g/dL (3.4-5.0) Albumin/Globulin Ratio 0.6 (1.0-1.7) 0.6 (1.0-1.7) Laboratory Tests Test 09/02/16 18:05 09/03/16 04:30 Hemoglobin 7.7g/dL (12.0-15.5) 7.6g/dL (12.0-15.5) Hematocrit 25.2% (36.0-47.0) 25.2% (36.0-47.0) White Blood Count 8.9x10^3/uL (4.0-11.0) Red Blood Count 3.74x10^6/uL (3.50-5.40) Mean Corpuscular Volume 67fL (79-100) Mean Corpuscular Hemoglobin 20pg (25-35) Mean Corpuscular Hemoglobin Concent 30g/dL (31-37) Red Cell Distribution Width 18.5% (11.5-14.5) Platelet Count 582x10^3/uL (140-400) Neutrophils (%) (Auto) 79% (31-73) Lymphocytes (%) (Auto) 13% (24-48) Monocytes (%) (Auto) 7% (0-9) Eosinophils (%) (Auto) 2% (0-3) Basophils (%) (Auto) 1% (0-3) Neutrophils # (Auto) 7.0x10^3uL (1.8-7.7) Lymphocytes # (Auto) 1.1x10^3/uL (1.0-4.8) Monocytes # (Auto) 0.6x10^3/uL (0.0-1.1) Eosinophils # (Auto) 0.2x10^3/uL (0.0-0.7) Basophils # (Auto) 0.0x10^3/uL (0.0-0.2) Sodium Level 138mmol/L (136-145) Potassium Level 4.0mmol/L (3.5-5.1) Chloride Level 102mmol/L (98-107) Carbon Dioxide Level 29mmol/L (21-32) Anion Gap 7 (6-14) Blood Urea Nitrogen 12mg/dL (7-20) Creatinine 0.6mg/dL (0.6-1.0) Estimated GFR (Cockcroft-Gault) 95.7 BUN/Creatinine Ratio 20 (6-20) Glucose Level 109mg/dL (70-99) Calcium Level 8.8mg/dL (8.5-10.1) Total Bilirubin 0.4mg/dL (0.2-1.0) Aspartate Amino Transf (AST/SGOT) 9U/L (15-37) Alanine Aminotransferase (ALT/SGPT) 6U/L (14-59) Alkaline Phosphatase 95U/L (46-116) Total Protein 5.7g/dL (6.4-8.2) Albumin 2.1g/dL (3.4-5.0) Albumin/Globulin Ratio 0.6 (1.0-1.7) Medications Current Medications Oxycodone HCl (Roxicodone) 20 mg PRN Q8HRS PRN PO PAIN Last administered on 16:01; Start 08/31/16 at 16:30 Furosemide (Lasix) 40 mg DAILY PO Last administered on 09/02/16 08:04; Start 09/01/16 at 09:00 Carvedilol (Coreg) 3.125 mg BIDWMEALS PO Last administered on 09/02/16 17:53; Start 08/31/16 at 19:00 Alprazolam (Xanax) 1 mg PRN Q6HRS PRN PO ANXIETY / AGITATION Last administered on 09/02/16 20:53; Start 08/31/16 at 16:30 Gabapentin (Neurontin) 400 mg BID PO Last administered on 09/02/16 20:49; Start 08/31/16 at 21:00 Docusate Sodium (Colace) 100 mg PRN QHS PRN PO CONSTIPATION; Start 08/31/16 at 16:30 Acetaminophen (Tylenol) 500 mg PRN Q4HRS PRN PO MILD PAIN / TEMP Last administered on 09/02/16 01:07; Start 08/31/16 at 16:30 Fentanyl (Duragesic 50mcg/ Hr Patch) 1 patch Q3DAYS TD Last administered on 08:43; Start 09/01/16 at 09:00 Fentanyl Citrate 50 mcg 50 mcg PRN Q3HRS PRN IV PAIN Last administered on 11:09; Start 08/31/16 at 16:30 Meropenem 500 mg/ Sodium Chloride 50 ml @ 100 mls/hr Q8HRS IV Last administered on 09/03/16 06:00; Start 08/31/16 at 22:00 Metronidazole (FLAGYL 500Mmg PREMIX) 100 ml @ 100 mls/hr Q8HRS IV Last administered on 09/01/16 05:12; Start 08/31/16 at 22:00; Stop 09/01/16 at 12:13 ; Status DC Mirabegron (Myrbetriq) 25 mg DAILY PO Last administered on 09/02/16 08:04; Start 09/01/16 at 09:00 Morphine Sulfate 5 mg PRN QID PRN SQ PAIN; Start 08/31/16 at 16:30 Nitroglycerin (Nitrostat) 0.4 mg PRN Q15MIN PRN SL CHEST PAIN; Start 08/31/16 at 16:30 Ondansetron HCl (Zofran) 4 mg PRN Q4HRS PRN IV NAUSEA/VOMITING Last administered on 09/03/16 03:28; Start 08/31/16 at 16:30 Polyethylene Glycol (miraLAX PACKET) 17 gm PRN DAILY PRN PO CONSTIPATION; Start 08/31/16 at 16:30 Potassium Chloride (Klor-Con) 20 meq DAILYWBKFT PO Last administered on 08:04; Start 09/01/16 at 08:00 Vancomycin HCl 1 each 1 each PRN DAILY PRN MC SEE COMMENTS Last administered on 09/02/16 10:21; Start 08/31/16 at 16:30 Vancomycin HCl/ Sodium Chloride (Iv Sodium Chloride 0.9% 250ml) 250 ml @ 250 mls/hr Q24H IV Last administered on 08/31/16 20:25; Start 08/31/16 at 20:00; Stop 09/01/16 at 20:40; Status DC Vancomycin HCl 1 each 1X ONCE MC Last administered on 09/01/16 19:30; Start 09/01/16 at 19:30; Stop 09/01/16 at 19:31; Status DC Non-Formulary Medication 1 ea DAILY PO ; Start 09/01/16 at 09:00; Status UNV Gadobutrol (Gadavist) 5 mmol 1X ONCE IV Last administered on 09/01/16 11:35; Start 09/01/16 at 11:15; Stop 09/01/16 at 11:16; Status DC Fentanyl (Duragesic 50mcg/ Hr Patch) 1 patch Q72H TD ; Start 09/01/16 at 12:45; Status UNV Mupirocin 1 tushar 1 tushar DAILY TP Last administered on 09/01/16 14:23; Start at 13:00; Stop 09/01/16 at 19:52; Status DC Amino Acids/ Electrolytes 1,000 ml @ 80 mls/hr [id number] IV Last administered on 09/03/16 03:28; Start 09/01/16 at 13:00 Vancomycin HCl/ Sodium Chloride (Iv Sodium Chloride 0.9% 250ml) 250 ml @ 250 mls/hr Q12H IV Last administered on 09/02/16 21:20; Start 09/01/16 at 21:00 Vancomycin HCl 1 each 1X ONCE MC ; Start 09/03/16 at 08:30; Stop 09/03/16 at 08 :31; Status DC Sodium Cl/Sod Bicarb/Potass Cl/ PEG (Golytely) 4,000 ml 1X ONCE PO Last administered on 09/02/16t 17:52; Start 09/02/16 at 16:00; Stop 09/02/16 at 16:09 ; Status DC Active Scripts Active Reported Miralax (Polyethylene Glycol 3350) 17 Gm Powd.pack 1 Packet PO DAILY PRN FENTANYL 50mcg/hr (Fentanyl) 1 Each Patch.td72 1 Patch TD Q72H Myrbetriq (Mirabegron) 25 Mg Tab.er.24h 25 Mg PO DAILY Tylenol Extra Strength (Acetaminophen) 500 Mg Tablet 500 Mg PO PRN Docusate Sodium 250 Mg Capsule 250 Mg PO HS Alprazolam 1 Mg Tablet 1 Mg PO PRN Q6HRS PRN Cyclobenzaprine Hcl 10 Mg Tablet 1 Tab PO TID PRN Aspir 81 (Aspirin) 81 Mg Tablet.dr 1 Tab PO DAILY Lasix (Furosemide) 40 Mg Tablet 1 Tab PO DAILY Ferrous Sulfate 325 Mg Tablet 65 Mg PO DAILY Potassium Chloride 10 Meq Tablet.er 20 Meq PO DAILY Nitrostat (Nitroglycerin) 0.4 Mg Tab.subl 0.4 Mg SL PRN Q5MIN PRN Keflex (Cephalexin) 500 Mg Capsule 1 Cap PO TID Carvedilol 3.125 Mg Tablet 3.125 Mg PO BIDWMEALS Gabapentin 800 Mg Tablet 800 Mg PO TID Oxycodone Hcl 30 Mg Tablet 20 Mg PO PRN Q8HRS PRN Bactroban Cream (Mupirocin) 15 Gm Cream..g. 1 Tushar TP DAILY Vitals/I & O Vital Sign - Last 24 Hours 09/02/16 09/02/16 09/02/16 09/02/16 11:00 11:09 11:40 15:00 Temp 98.5 98.7 98.5 98.7 Pulse 72 82 Resp 20 18 B/P 123/87 113/52 Pulse Ox 94 93 O2 Delivery Room Air Room Air Room Air Room Air 09/02/16 09/02/16 09/02/16 09/02/16 16:01 17:00 17:53 19:00 Temp 98.5 98.5 Pulse 82 74 Resp 18 B/P 113/52 114/59 Pulse Ox 96 O2 Delivery Room Air Room Air Room Air 09/02/16 09/02/16 09/03/16 09/03/16 20:00 23:00 03:00 07:44 Temp 97.7 98.2 98.3 97.7 98.2 98.3 Pulse 77 73 72 Resp 18 18 16 B/P 123/60 104/50 112/47 Pulse Ox 91 94 98 O2 Delivery Room Air Room Air Room Air Room Air Intake and Output 09/02/16 09/02/16 09/03/16 15:00 23:00 07:00 Intake Total 50 ml 740 ml 3600 ml Output Total 2650 ml 1500 ml Balance 50 ml -1910 ml 2100 ml ALEX MTZ MD Sep 03, 2016 09:56
[2016-09-03] MEDS: IV RINGERS,LACTATED 1000ML 1,000 ML IV SCH (14:00)
[2016-09-03] MEDS ORDERED: PROPOFOL 20 ML IV ONE (14:30)
[2016-09-03] MEDS: FENTANYL PF 100 MCG/2 ML VIAL. IV PRN ×2 (16:09→19:37)
[2016-09-04] MEDS: FENTANYL PF 100 MCG/2 ML VIAL. IV PRN ×4 (00:24→12:24)
[2016-09-04] MEDS: AA 2.75%/CALCIUM/LYTES/D5W 1,000 ML IV SCH ×3 (00:35→14:38)
[2016-09-04 03:12] VITALS: BP 115/56
[2016-09-04] MEDS: IV RINGERS,LACTATED 1000ML 1,000 ML IV SCH ×2 (03:20→16:40)
[2016-09-04] MEDS: MEROPENEM 500 MG in IV NORMAL SALINE 50ML 50 ML IV SCH ×3 (05:51→22:06)
[2016-09-04 07:00] VITALS: BP 120/46
[2016-09-04] MEDS: CARVEDILOL 3.125 MG TABLET PO SCH ×2 (08:00→17:00)
[2016-09-04] MEDS: POTASSIUM CHLORIDE 20 MEQ TABLET.ER. PO SCH (08:00)
--- NOTE | 2016-09-04 08:05 | PN ---
DATE: 09/03/2016 SUBJECTIVE: The patient is resting, slightly propped up, complaining of severe back pain. She just came back from colonoscopy. She apparently underwent colonoscopy and apparently there is a mass, but I do not have any notes here in the computer and apparently, the paving foreman will be here tomorrow to explain to the patient findings and her option. PHYSICAL EXAMINATION: GENERAL: When I examined her this afternoon, she was resting, slightly propped up, and complaining of severe back pain. She was pale, but no jaundice, cyanosis, or thyromegaly. No jugular venous distention. No limb edema. VITAL SIGNS: Her heart rate was 75, blood pressure 128/60, temperature was 98.4, respiratory rate was 16, and oxygen saturation was 95%. HEAD, EYES, EARS, NOSE, AND THROAT: Normocephalic, atraumatic. NECK: Supple. HEART: Showed normal first and second heart sounds. No gallop, rub, or murmur. CHEST: Clear to auscultation. No crepitation or rhonchi. ABDOMEN: Distended with tympanitic node on percussion. No guarding or rigidity. No organomegaly. Hernial orifices intact. Bowel sounds were normal. NEUROLOGIC: She is awake, alert, and responding appropriately, although at times she is competent. Cranial nerves are intact. She moves her upper extremities , lower extremities. Her intake over the last 24 hours was 4,390, output was 4,150. LABORATORY DATA: Her lab workup this morning showed a white cell count of 8,900, hemoglobin 7.6, hematocrit 25.2, MCV 67 and platelet count of 502,000. Her chemistry showed a serum sodium of 138, potassium 4, chloride 102, bicarbonate 29, anion gap of 7, BUN 12, creatinine 0.6, and her platelets were 109,000____. ASSESSMENT: 1. Urinary tract infection. 2. Acute T12 compression fracture. 3. 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 4. Apparently, she has had colonoscopy, which showed like a large mass that was biopsied. PLAN: My plan is to continue with IV antibiotic, continue with IV fluid, and await the evaluation by the surgical team to see whether she is a candidate for surgical resection. NISHANT KUO MD DR: DINORA/gabe JOB#: [id number] / [id number]
[2016-09-04] MEDS: FENTANYL 50MCG/HR PATCH. TD SCH (08:16)
[2016-09-04 08:18] LABS: BASO % 0 % (0-3); EOS % 1 % (0-3); HEMATOCRIT 23.7 % (36.0-47.0); HEMOGLOBIN 7.3 g/dL (12.0-15.5); LYMPH # 0.8 x10^3/uL (1.0-4.8); LYMPH % 9 % (24-48); MEAN CORPUSCULAR HEMOGLOBIN 21 pg (25-35); MEAN CORPUSCULAR HGB CONC 31 g/dL (31-37); MEAN CORPUSCULAR VOLUME 66 fL (79-100); MONO % 4 % (0-9); NEUT % 86 % (31-73); PLATELET COUNT 640 x10^3/uL (140-400); RED BLOOD COUNT 3.57 x10^6/uL (3.50-5.40); RED CELL DISTRIBUTION WIDTH 18.5 % (11.5-14.5); WHITE BLOOD COUNT 9.3 x10^3/uL (4.0-11.0)
[2016-09-04] MEDS: FUROSEMIDE 40 MG TABLET PO SCH (08:18)
[2016-09-04] MEDS: MIRABEGRON 25 MG TAB.ER.24H PO SCH (08:18)
[2016-09-04] MEDS: GABAPENTIN 400 MG CAPSULE. PO SCH ×2 (08:19→22:06)
[2016-09-04 08:35] LABS: ALBUMIN 2.3 g/dL (3.4-5.0); ALBUMIN/GLOBULIN RATIO 0.7 (1.0-1.7); CREATININE 0.6 mg/dL (0.6-1.0); GFR 95.7; TOTAL BILIRUBIN 0.2 mg/dL (0.2-1.0); TOTAL PROTEIN 5.5 g/dL (6.4-8.2)
[2016-09-04 08:39] LABS: POTASSIUM 5.3 mmol/L (3.5-5.1)
--- NOTE | 2016-09-04 09:42 | PDOC ---
Infectious Disease Note Subjective Subjective Doing ok. Still hearing difficulty. Overall better. Still some back pain ROS ROS GEN: Denies fevers, chills, sweats HEENT: Denies blurred vision, sore throat CV: Denies chest pain RESP: Denies shortness of air, cough GI: Denies n/v/d NEURO: Denies confusion, dizziness MSK: Denies weakness, joint pain/swelling Vital Sign Vital Signs Vital Signs Date Time Temp Pulse Resp B/P Pulse Ox O2 Delivery O2 Flow Rate FiO2 09/04/16 09:00 Room Air 09/04/16 06:30 16 09/04/16 03:12 98.0 72 115/56 95 98.0 09/03/16 15:03 2 Physical Exam PHYSICAL EXAM GENERAL: NAD, Alert - looks better HEENT: PERRL, OC/OP- clear NECK: Supple, no JVD, no LN LUNGS: Clear HEART: S1S2, no gallop, no murmur ABD: Soft, NT, no organomegaly, no rebound EXT: No edema, no cyanosis CHUCKING MACHINE OPERATOR: Alert, no focal neurologic deficit SKIN: No rash IV: ok Labs Lab Laboratory Tests Test 09/04/16 07:40 White Blood Count 9.3x10^3/uL (4.0-11.0) Red Blood Count 3.57x10^6/uL (3.50-5.40) Hemoglobin 7.3g/dL (12.0-15.5) Hematocrit 23.7% (36.0-47.0) Mean Corpuscular Volume 66fL (79-100) Mean Corpuscular Hemoglobin 21pg (25-35) Mean Corpuscular Hemoglobin Concent 31g/dL (31-37) Red Cell Distribution Width 18.5% (11.5-14.5) Platelet Count 640x10^3/uL (140-400) Neutrophils (%) (Auto) 86% (31-73) Lymphocytes (%) (Auto) 9% (24-48) Monocytes (%) (Auto) 4% (0-9) Eosinophils (%) (Auto) 1% (0-3) Basophils (%) (Auto) 0% (0-3) Neutrophils # (Auto) 7.9x10^3uL (1.8-7.7) Lymphocytes # (Auto) 0.8x10^3/uL (1.0-4.8) Monocytes # (Auto) 0.4x10^3/uL (0.0-1.1) Eosinophils # (Auto) 0.1x10^3/uL (0.0-0.7) Basophils # (Auto) 0.0x10^3/uL (0.0-0.2) Sodium Level 136mmol/L (136-145) Potassium Level 5.3mmol/L (3.5-5.1) Chloride Level 103mmol/L (98-107) Carbon Dioxide Level 28mmol/L (21-32) Anion Gap 5 (6-14) Blood Urea Nitrogen 9mg/dL (7-20) Creatinine 0.6mg/dL (0.6-1.0) Estimated GFR (Cockcroft-Gault) 95.7 BUN/Creatinine Ratio 15 (6-20) Glucose Level 113mg/dL (70-99) Calcium Level 9.0mg/dL (8.5-10.1) Total Bilirubin 0.2mg/dL (0.2-1.0) Aspartate Amino Transf (AST/SGOT) 9U/L (15-37) Alanine Aminotransferase (ALT/SGPT) 6U/L (14-59) Alkaline Phosphatase 97U/L (46-116) Total Protein 5.5g/dL (6.4-8.2) Albumin 2.3g/dL (3.4-5.0) Albumin/Globulin Ratio 0.7 (1.0-1.7) Objective Assessment UTI -Proteus d/w micro R to quinolones/Nitrofurantoin/Tetracycline/Bactrim. Cath changed 08/27. + Kleb also now Res to Amp/Bactrim/Pip Leukocytosis ? reactive ? fracture T12/? Abd mass/UTI/Constipation. better PCN/Amox allergy - tolerates Keflex Back pain with acute T [address] abdomen with mass on Colonoscopy per report by nursing Buttock/heal wound - going to wound care Decreasing hearing ? 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
--- NOTE | 2016-09-04 09:51 | PDOC ---
Subjective: Subjective: Back and leg pain. Alone in room. Objective: Objective: D/w RN - still NPO, not sure why. Vital Signs: Vital Signs Date Time Temp Pulse Resp B/P Pulse Ox O2 Delivery O2 Flow Rate FiO2 09/04/16 09:00 Room Air 09/04/16 06:30 16 09/04/16 03:12 98.0 72 115/56 95 98.0 09/03/16 15:03 2 Labs: Laboratory Tests Test 09/04/16 07:40 White Blood Count 9.3x10^3/uL Red Blood Count 3.57x10^6/uL Hemoglobin 7.3g/dL Hematocrit 23.7% Mean Corpuscular Volume 66fL Mean Corpuscular Hemoglobin 21pg Mean Corpuscular Hemoglobin Concent 31g/dL Red Cell Distribution Width 18.5% Platelet Count 640x10^3/uL Neutrophils (%) (Auto) 86% Lymphocytes (%) (Auto) 9% Monocytes (%) (Auto) 4% Eosinophils (%) (Auto) 1% Basophils (%) (Auto) 0% Neutrophils # (Auto) 7.9x10^3uL Lymphocytes # (Auto) 0.8x10^3/uL Monocytes # (Auto) 0.4x10^3/uL Eosinophils # (Auto) 0.1x10^3/uL Basophils # (Auto) 0.0x10^3/uL Platelet Estimate Pending Sodium Level 136mmol/L Potassium Level 5.3mmol/L Chloride Level 103mmol/L Carbon Dioxide Level 28mmol/L Anion Gap 5 Blood Urea Nitrogen 9mg/dL Creatinine 0.6mg/dL Estimated GFR (Cockcroft-Gault) 95.7 BUN/Creatinine Ratio 15 Glucose Level 113mg/dL Calcium Level 9.0mg/dL Total Bilirubin 0.2mg/dL Aspartate Amino Transf (AST/SGOT) 9U/L Alanine Aminotransferase (ALT/SGPT) 6U/L Alkaline Phosphatase 97U/L Total Protein 5.5g/dL Albumin 2.3g/dL Albumin/Globulin Ratio 0.7 PE: GEN: NAD LUNGS: clear anteriorly HEART: S1S2 ABD: BUQ tenderness NEURO/PSYCH: answers appropriately A/P: Colon mass (on colonoscopy w/ previous abnormal CT findings) ROBBIE -Hgb from 7.6 to 7.3 Chronic back pain w/ UTI, compression fracture -atbx per ID -- D/w RN - not sure why still NPO, could resume clears per GI. Surgery following. ?MAURO Melvin Sep 04, 2016 09:51
--- NOTE | 2016-09-04 10:39 | PDOC ---
AGATHA NERI CANDLE CUTTER 09/04/16 1039: SURGICAL PROGRESS NOTE Subjective back pain trying to use bedpan Vital Signs Vital Signs Date Time Temp Pulse Resp B/P Pulse Ox O2 Delivery O2 Flow Rate FiO2 09/04/16 09:00 Room Air 09/04/16 07:00 97.8 72 16 120/46 94 97.8 09/03/16 15:03 2 I&O Intake and Output 09/04/16 07:00 Intake Total 1520 ml Output Total 2950 ml Balance -1430 ml Intake Oral 0 ml IV Total 560 ml Other 960 ml Output Urine Total 2950 ml # Voids 5 General: Cooperative Abdomen: Other (tender lower abdomen) Labs Laboratory Tests Test 09/02/16 18:05 09/03/16 04:30 09/03/16 08:50 09/04/16 07:40 Hemoglobin 7.7g/dL (12.0-15.5) 7.6g/dL (12.0-15.5) 7.3g/dL (12.0-15.5) Hematocrit 25.2% (36.0-47.0) 25.2% (36.0-47.0) 23.7% (36.0-47.0) White Blood Count 8.9x10^3/uL (4.0-11.0) 9.3x10^3/uL (4.0-11.0) Red Blood Count 3.74x10^6/uL (3.50-5.40) 3.57x10^6/uL (3.50-5.40) Mean Corpuscular Volume 67fL (79-100) 66fL (79-100) Mean Corpuscular Hemoglobin 20pg (25-35) 21pg (25-35) Mean Corpuscular Hemoglobin Concent 30g/dL (31-37) 31g/dL (31-37) Red Cell Distribution Width 18.5% (11.5-14.5) 18.5% (11.5-14.5) Platelet Count 582x10^3/uL (140-400) 640x10^3/uL (140-400) Neutrophils (%) (Auto) 79% (31-73) 86% (31-73) Lymphocytes (%) (Auto) 13% (24-48) 9% (24-48) Monocytes (%) (Auto) 7% (0-9) 4% (0-9) Eosinophils (%) (Auto) 2% (0-3) 1% (0-3) Basophils (%) (Auto) 1% (0-3) 0% (0-3) Neutrophils # (Auto) 7.0x10^3uL (1.8-7.7) 7.9x10^3uL (1.8-7.7) Lymphocytes # (Auto) 1.1x10^3/uL (1.0-4.8) 0.8x10^3/uL (1.0-4.8) Monocytes # (Auto) 0.6x10^3/uL (0.0-1.1) 0.4x10^3/uL (0.0-1.1) Eosinophils # (Auto) 0.2x10^3/uL (0.0-0.7) 0.1x10^3/uL (0.0-0.7) Basophils # (Auto) 0.0x10^3/uL (0.0-0.2) 0.0x10^3/uL (0.0-0.2) Sodium Level 138mmol/L (136-145) 136mmol/L (136-145) Potassium Level 4.0mmol/L (3.5-5.1) 5.3mmol/L (3.5-5.1) Chloride Level 102mmol/L (98-107) 103mmol/L (98-107) Carbon Dioxide Level 29mmol/L (21-32) 28mmol/L (21-32) Anion Gap 7 (6-14) 5 (6-14) Blood Urea Nitrogen 12mg/dL (7-20) 9mg/dL (7-20) Creatinine 0.6mg/dL (0.6-1.0) 0.6mg/dL (0.6-1.0) Estimated GFR (Cockcroft-Gault) 95.7 95.7 BUN/Creatinine Ratio 20 (6-20) 15 (6-20) Glucose Level 109mg/dL (70-99) 113mg/dL (70-99) Calcium Level 8.8mg/dL (8.5-10.1) 9.0mg/dL (8.5-10.1) Total Bilirubin 0.4mg/dL (0.2-1.0) 0.2mg/dL (0.2-1.0) Aspartate Amino Transf (AST/SGOT) 9U/L (15-37) 9U/L (15-37) Alanine Aminotransferase (ALT/SGPT) 6U/L (14-59) 6U/L (14-59) Alkaline Phosphatase 95U/L (46-116) 97U/L (46-116) Total Protein 5.7g/dL (6.4-8.2) 5.5g/dL (6.4-8.2) Albumin 2.1g/dL (3.4-5.0) 2.3g/dL (3.4-5.0) Albumin/Globulin Ratio 0.6 (1.0-1.7) 0.7 (1.0-1.7) Vancomycin Level Trough 13.0mcg/mL (10.0-20.0) Vancomycin Last Dose Date 09/02/16 Vancomycin Last Dose Time 2100 Laboratory Tests Test 09/04/16 07:40 White Blood Count 9.3x10^3/uL (4.0-11.0) Red Blood Count 3.57x10^6/uL (3.50-5.40) Hemoglobin 7.3g/dL (12.0-15.5) Hematocrit 23.7% (36.0-47.0) Mean Corpuscular Volume 66fL (79-100) Mean Corpuscular Hemoglobin 21pg (25-35) Mean Corpuscular Hemoglobin Concent 31g/dL (31-37) Red Cell Distribution Width 18.5% (11.5-14.5) Platelet Count 640x10^3/uL (140-400) Neutrophils (%) (Auto) 86% (31-73) Lymphocytes (%) (Auto) 9% (24-48) Monocytes (%) (Auto) 4% (0-9) Eosinophils (%) (Auto) 1% (0-3) Basophils (%) (Auto) 0% (0-3) Neutrophils # (Auto) 7.9x10^3uL (1.8-7.7) Lymphocytes # (Auto) 0.8x10^3/uL (1.0-4.8) Monocytes # (Auto) 0.4x10^3/uL (0.0-1.1) Eosinophils # (Auto) 0.1x10^3/uL (0.0-0.7) Basophils # (Auto) 0.0x10^3/uL (0.0-0.2) Sodium Level 136mmol/L (136-145) Potassium Level 5.3mmol/L (3.5-5.1) Chloride Level 103mmol/L (98-107) Carbon Dioxide Level 28mmol/L (21-32) Anion Gap 5 (6-14) Blood Urea Nitrogen 9mg/dL (7-20) Creatinine 0.6mg/dL (0.6-1.0) Estimated GFR (Cockcroft-Gault) 95.7 BUN/Creatinine Ratio 15 (6-20) Glucose Level 113mg/dL (70-99) Calcium Level 9.0mg/dL (8.5-10.1) Total Bilirubin 0.2mg/dL (0.2-1.0) Aspartate Amino Transf (AST/SGOT) 9U/L (15-37) Alanine Aminotransferase (ALT/SGPT) 6U/L (14-59) Alkaline Phosphatase 97U/L (46-116) Total Protein 5.5g/dL (6.4-8.2) Albumin 2.3g/dL (3.4-5.0) Albumin/Globulin Ratio 0.7 (1.0-1.7) Assessment/Plan colonic mass, daughter present dr lindquist will discuss surgery with them today Problems: ALEX LINDQUIST MD 09/04/16 3681: SURGICAL PROGRESS NOTE Assessment/Plan The patient was seen and examined by myself, her daughter was present; She continues to complain of back pain. Abdomen soft, tender in left abdomen, no masses are palpable; remainder of exam as above; I explained the colonoscopy findings (although the final colonoscopy report is not completed or available). I explained the typical recommendation for a colon mass which would require a segmental resection. The details and risks of surgery were discussed. I also discussed the potential risks or problems if the mass were not removed ( obstruction, bleeding, progression). She is not certain at this point if she wants any surgery and asks questions about just keeping her comfortable. She and her daughter would like to think it over and discuss further with family. If they agree to surgery can plan for colon resection Thursday. If they do not wish for surgery then would create a plan for the future, and ask palliative care to assist. Problems: AGATHA NERI APRN Sep 04, 2016 10:39 ALEX LINDQUIST MD Sep 04, 2016 13:56
[2016-09-04 10:41] LABS: ANISOCYTOSIS SLIGHT; HYPOCHROMIA MARKED; MICROCYTOSIS MARKED; PLT ESTIMATE INCREASED (ADEQUATE)
[2016-09-04 10:42] LABS: SCHISTOCYTES OCC
[2016-09-04 11:00] VITALS: BP 129/52
[2016-09-04 15:00] VITALS: BP 127/59
[2016-09-04] MEDS: OXYCODONE IR 5 MG TABLET. PO PRN (15:31)
[2016-09-04] MEDS: ALPRAZOLAM 1 MG TABLET PO PRN (16:13)
[2016-09-04 19:00] VITALS: BP 125/56
[2016-09-04 23:00] VITALS: BP 133/60
[2016-09-05] MEDS: AA 2.75%/CALCIUM/LYTES/D5W 1,000 ML IV SCH (02:45)
[2016-09-05 03:00] VITALS: BP 122/62
--- NOTE | 2016-09-05 04:10 | PN ---
DATE: 09/04/2016 SUBJECTIVE: The patient is resting slightly propped up, comfortably. She continued to have back pain, although she seemed to be more comfortable today. Her daughter is here and plan is to for Dr. Prabhakar to discuss with him the options available for treatment. PHYSICAL EXAMINATION: GENERAL: When I examined her; however, she looked pale, but no jaundice, cyanosis, or thyromegaly. No jugular venous distention. No limb edema. VITAL SIGNS: Her heart rate was 72, blood pressure 120/46, temperature was 97.8, respiratory rate 16, and oxygen saturation was 94% on room air. HEAD, EYES, EARS, NOSE AND THROAT: Showed normocephalic, atraumatic. NECK: Supple. HEART: Showed normal first and second heart sounds with no gallop, rub or murmur. CHEST: Clear to auscultation. No crepitation or rhonchi. ABDOMEN: Distended, soft, nontender with tympanitic note on percussion. There is no guarding or rigidity. No organomegaly. Hernial orifices intact. Bowel sounds normal. NEUROLOGIC: She is awake, alert, responding appropriately. Cranial nerves intact. She moves upper extremities to much greater extent than lower extremities. Her intake over the last 24 hours was 4400, output was 4150. LABORATORY DATA: Her lab work this morning showed a white cell count 9300, hemoglobin 7.3, hematocrit 23.7, MCV 66 and platelet count 640,000. Her chemistry showed a serum sodium was 136, potassium 5.3, chloride 103, bicarbonate 28, anion gap of 5, BUN 9, creatinine 0.6, estimated GFR was 96 mL per minute. Her glucose 113, calcium was 9. Total bilirubin, AST, ALT, alkaline phosphatase were normal. Total protein was 5.5, albumin 2.3. ASSESSMENT: 1. Urinary tract infection, on IV meropenem. 2. Acute T12 compression fracture; however, Dr. Yancey postponed the procedure until her infection is treated. 3. Aneurysmal dilatation. The splenic flexure of the colon measures 9 x 6.5 cm with wall thickening, enhancement and wide surrounding inflammation. 4. She apparently had had a colonoscopy which showed that she had a large mass that was biopsied, the results of which is still pending at the time of this dictation. 5. Severe microcytic hypochromic anemia consistent with iron deficiency anemia. 6. Severe protein calorie malnutrition with serum albumin is only 2.3 g/dL. PLAN: Await the surgical team decision and the patient's and and her daughter's decision whether to proceed with surgery or not. I will discuss with ____ whether that he has a reasonable treatment with antibiotics ____ we should consider kyphoplasty. NISHANT KUO MD DR: DINORA/nts JOB#: [id number] / [id number]
[2016-09-05 04:30] LABS: HEMATOCRIT 24.9 % (36.0-47.0); HEMOGLOBIN 7.6 g/dL (12.0-15.5); RED BLOOD COUNT 3.67 x10^6/uL (3.50-5.40); RED CELL DISTRIBUTION WIDTH 18.8 % (11.5-14.5); WHITE BLOOD COUNT 7.7 x10^3/uL (4.0-11.0)
[2016-09-05 04:39] LABS: INR 1.2 (0.8-1.1); PROTHROMBIN TIME PATIENT 14.4 SEC (11.7-14.0)
[2016-09-05 04:51] LABS: CALCIUM 8.8 mg/dL (8.5-10.1); CREATININE 0.5 mg/dL (0.6-1.0); GFR 118.1; POTASSIUM 4.5 mmol/L (3.5-5.1)
[2016-09-05] MEDS: OXYCODONE IR 5 MG TABLET. PO PRN ×3 (05:39→23:48)
[2016-09-05] MEDS: MEROPENEM 500 MG in IV NORMAL SALINE 50ML 50 ML IV SCH ×3 (05:40→21:32)
[2016-09-05] MEDS: IV RINGERS,LACTATED 1000ML 1,000 ML IV SCH ×2 (06:00→19:20)
[2016-09-05 07:00] VITALS: BP 131/56
[2016-09-05] MEDS: MIRABEGRON 25 MG TAB.ER.24H PO SCH (08:48)
[2016-09-05] MEDS: GABAPENTIN 400 MG CAPSULE. PO SCH ×3 (08:48→23:46)
[2016-09-05] MEDS: CARVEDILOL 3.125 MG TABLET PO SCH ×2 (08:49→16:55)
[2016-09-05] MEDS: FUROSEMIDE 40 MG TABLET PO SCH (08:49)
--- NOTE | 2016-09-05 09:30 | PDOC ---
AGATHA NERI FLOOR CARE TECHNICIAN 09/05/16 0929: SURGICAL PROGRESS NOTE Subjective d/w pt and daughter she has not made a decision yet Vital Signs Vital Signs Date Time Temp Pulse Resp B/P Pulse Ox O2 Delivery O2 Flow Rate FiO2 09/05/16 08:49 77 131/56 09/05/16 07:00 98.1 16 98 Room Air 98.1 I&O Intake and Output 09/05/16 07:00 Intake Total 1920 ml Output Total 4550 ml Balance -2630 ml Intake Oral 0 ml IV Total 960 ml Other 960 ml Output Urine Total 4550 ml # Voids 1 General: Alert, Oriented X3, Cooperative, No acute distress Abdomen: Soft, Other (tenderness on exam RLQ) Labs Laboratory Tests Test 09/04/16 07:40 09/05/16 04:15 White Blood Count 9.3x10^3/uL (4.0-11.0) 7.7x10^3/uL (4.0-11.0) Red Blood Count 3.57x10^6/uL (3.50-5.40) 3.67x10^6/uL (3.50-5.40) Hemoglobin 7.3g/dL (12.0-15.5) 7.6g/dL (12.0-15.5) Hematocrit 23.7% (36.0-47.0) 24.9% (36.0-47.0) Mean Corpuscular Volume 66fL (79-100) 68fL (79-100) Mean Corpuscular Hemoglobin 21pg (25-35) 21pg (25-35) Mean Corpuscular Hemoglobin Concent 31g/dL (31-37) 30g/dL (31-37) Red Cell Distribution Width 18.5% (11.5-14.5) 18.8% (11.5-14.5) Platelet Count 640x10^3/uL (140-400) 617x10^3/uL (140-400) Neutrophils (%) (Auto) 86% (31-73) Lymphocytes (%) (Auto) 9% (24-48) Monocytes (%) (Auto) 4% (0-9) Eosinophils (%) (Auto) 1% (0-3) Basophils (%) (Auto) 0% (0-3) Neutrophils # (Auto) 7.9x10^3uL (1.8-7.7) Lymphocytes # (Auto) 0.8x10^3/uL (1.0-4.8) Monocytes # (Auto) 0.4x10^3/uL (0.0-1.1) Eosinophils # (Auto) 0.1x10^3/uL (0.0-0.7) Basophils # (Auto) 0.0x10^3/uL (0.0-0.2) Segmented Neutrophils % 92% (35-66) Lymphocytes % 3% (24-48) Monocytes % 5% (0-10) Platelet Estimate Increased (ADEQUATE) Large Platelets Occ Hypochromasia Marked Anisocytosis Slight Microcytosis Marked Schistocytes Occ Sodium Level 136mmol/L (136-145) 139mmol/L (136-145) Potassium Level 5.3mmol/L (3.5-5.1) 4.5mmol/L (3.5-5.1) Chloride Level 103mmol/L (98-107) 105mmol/L (98-107) Carbon Dioxide Level 28mmol/L (21-32) 28mmol/L (21-32) Anion Gap 5 (6-14) 6 (6-14) Blood Urea Nitrogen 9mg/dL (7-20) 10mg/dL (7-20) Creatinine 0.6mg/dL (0.6-1.0) 0.5mg/dL (0.6-1.0) Estimated GFR (Cockcroft-Gault) 95.7 118.1 BUN/Creatinine Ratio 15 (6-20) Glucose Level 113mg/dL (70-99) 101mg/dL (70-99) Calcium Level 9.0mg/dL (8.5-10.1) 8.8mg/dL (8.5-10.1) Total Bilirubin 0.2mg/dL (0.2-1.0) Aspartate Amino Transf (AST/SGOT) 9U/L (15-37) Alanine Aminotransferase (ALT/SGPT) 6U/L (14-59) Alkaline Phosphatase 97U/L (46-116) Total Protein 5.5g/dL (6.4-8.2) Albumin 2.3g/dL (3.4-5.0) Albumin/Globulin Ratio 0.7 (1.0-1.7) Prothrombin Time 14.4SEC (11.7-14.0) Prothromb Time International Ratio 1.2 (0.8-1.1) Laboratory Tests Test 09/05/16 04:15 White Blood Count 7.7x10^3/uL (4.0-11.0) Red Blood Count 3.67x10^6/uL (3.50-5.40) Hemoglobin 7.6g/dL (12.0-15.5) Hematocrit 24.9% (36.0-47.0) Mean Corpuscular Volume 68fL (79-100) Mean Corpuscular Hemoglobin 21pg (25-35) Mean Corpuscular Hemoglobin Concent 30g/dL (31-37) Red Cell Distribution Width 18.8% (11.5-14.5) Platelet Count 617x10^3/uL (140-400) Prothrombin Time 14.4SEC (11.7-14.0) Prothromb Time International Ratio 1.2 (0.8-1.1) Sodium Level 139mmol/L (136-145) Potassium Level 4.5mmol/L (3.5-5.1) Chloride Level 105mmol/L (98-107) Carbon Dioxide Level 28mmol/L (21-32) Anion Gap 6 (6-14) Blood Urea Nitrogen 10mg/dL (7-20) Creatinine 0.5mg/dL (0.6-1.0) Estimated GFR (Cockcroft-Gault) 118.1 Glucose Level 101mg/dL (70-99) Calcium Level 8.8mg/dL (8.5-10.1) Assessment/Plan colon mass pt has not made a decision yet regarding surgery will FU in AM Problems: ALEX MTZ MD 09/05/16 1208: SURGICAL PROGRESS NOTE Assessment/Plan Reviewed, will block time Thursday if wish to proceed with surgery; if they decide not then will cancel and would recommend palliative care input for future planning Problems: AGATHA NERI APRN Sep 05, 2016 09:29 ALEX MTZ MD Sep 05, 2016 12:08
[2016-09-05] MEDS: FENTANYL PF 100 MCG/2 ML VIAL. IV PRN ×3 (09:43→21:42)
--- NOTE | 2016-09-05 09:50 | PDOC ---
Infectious Disease Note Subjective Subjective Doing ok. Complaining of back pain. Hearing the same Expressing difficulty in deciding whether to proceed with surgery or not. Daughter at bedside. ROS ROS GEN: Denies fevers, chills, sweats HEENT: Denies blurred vision, sore throat CV: Denies chest pain RESP: Denies shortness of air, cough GI: Denies n/v/d NEURO: Denies confusion, dizziness MSK: Denies weakness, joint pain/swelling Vital Sign Vital Signs Vital Signs Date Time Temp Pulse Resp B/P Pulse Ox O2 Delivery O2 Flow Rate FiO2 09/05/16 08:49 77 131/56 09/05/16 07:00 98.1 16 98 Room Air 98.1 Physical Exam PHYSICAL EXAM GENERAL: NAD, Alert HEENT: PERRL, OC/OP - clear NECK: Supple, no JVD, no LN LUNGS: Clear HEART: S1S2, no gallop, no murmur ABD: Soft, ND, Mild generalized tenderness, no organomegaly, no rebound/guard EXT: No edema, no cyanosis LOGGING SUPERVISOR: Alert, oriented, no focal neurologic deficit SKIN: No rash IV: ok Labs Lab Laboratory Tests Test 09/05/16 04:15 White Blood Count 7.7x10^3/uL (4.0-11.0) Red Blood Count 3.67x10^6/uL (3.50-5.40) Hemoglobin 7.6g/dL (12.0-15.5) Hematocrit 24.9% (36.0-47.0) Mean Corpuscular Volume 68fL (79-100) Mean Corpuscular Hemoglobin 21pg (25-35) Mean Corpuscular Hemoglobin Concent 30g/dL (31-37) Red Cell Distribution Width 18.8% (11.5-14.5) Platelet Count 617x10^3/uL (140-400) Prothrombin Time 14.4SEC (11.7-14.0) Prothromb Time International Ratio 1.2 (0.8-1.1) Sodium Level 139mmol/L (136-145) Potassium Level 4.5mmol/L (3.5-5.1) Chloride Level 105mmol/L (98-107) Carbon Dioxide Level 28mmol/L (21-32) Anion Gap 6 (6-14) Blood Urea Nitrogen 10mg/dL (7-20) Creatinine 0.5mg/dL (0.6-1.0) Estimated GFR (Cockcroft-Gault) 118.1 Glucose Level 101mg/dL (70-99) Calcium Level 8.8mg/dL (8.5-10.1) Objective Assessment UTI -Proteus d/w micro R to quinolones/Nitrofurantoin/Tetracycline/Bactrim. Cath changed 08/27. + Kleb also now Res to Amp/Bactrim/Pip Leukocytosis ? reactive ? fracture T12/? Abd mass/UTI/Constipation. better PCN/Amox allergy - tolerates Keflex Back pain with acute T [address] abdomen with ulcerating mass on Colonoscopy per report by nursing Buttock/heal wound - going to wound care Decreasing hearing ? 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 Daughter interested in palliative care eval Blood cx neg. Ok for Kyphoplasty from ID standpoint given neg blood cults and need for palliative pain relief F/u labs and cults Local wound care D/w daughter ABDIAS FIGUEROA MD Sep 05, 2016 09:50
[2016-09-05 10:29] VITALS: BP 106/52
[2016-09-05] MEDS: ALPRAZOLAM 1 MG TABLET PO PRN (11:57)
--- NOTE | 2016-09-05 13:05 | PATHOLOGY ---
PATHOLOGY REPORT * * * * * * * * FINAL DIAGNOSIS: Colon biopsies, ulcerated splenic flexure mass: - ADENOCARCINOMA, MODERATELY-WELL DIFFERENTIATED, WITH FOCAL MUCINOUS FEATURES. SEE COMMENT. COMMENT: Sections of the splenic flexure ulcerated mass biopsy focally reveal malignant glands infiltrating an inflamed reactive desmoplastic stroma. Some of the malignant glands appear to be distended with mucin. There are associated segments of tubular adenoma showing high-grade dysplasia. The case is also examined by Dr. Serg Peterson, who concurs with the diagnosis. (JPM:; d/t: 09/05/16) REPORT ELECTRONICALLY SIGNED BY: Raman Perry M.D. DATE/TIME: 09/05/2016 13:05 * * * * * * * * GROSS PATHOLOGY: Received in formalin labeled "Roxy Evans and splenic flexure ulcerated mass biopsy," are 6 segments of chu soft tissue measuring 1.4 x 0.3 x 0.2 cm in aggregate dimensions and ranging from 0.2 to 0.5 cm in maximum dimension. The specimen is submitted entirely in cassette A1. (TTL; 09/04/2016) INITIAL CPT CODE(S): A; 24425 Professional services performed by [facility] [place] [place] [address] Technical services performed by [facility] at [address] [place] [address], [facility] [address] [address]. SPECIMEN(S) RECEIVED: A.Splenic flexure ulcerated mass biopsy CLINICAL HISTORY: Anemia PATIENT: ROXY EVANS /AGE: 612/18/1935 (Age: 80) PATIENT #: [id number] ALT CASE #: SPECIMEN COLLECTION DATE: 09/03/2016 SPECIMEN RECEIVED DATE: 09/04/2016 [facility] - [address] [place] [address] - PHONE: [phone] * * * END OF REPORT * * *
--- NOTE | 2016-09-05 13:05 | PDOC ---
Objective: Objective: Per RN, no decision re: surgery, tolerating clears. Vital Signs: Vital Signs Date Time Temp Pulse Resp B/P Pulse Ox O2 Delivery O2 Flow Rate FiO2 09/05/16 10:45 Room Air 09/05/16 10:29 98.1 75 16 106/52 96 98.1 Labs: Laboratory Tests Test 09/05/16 04:15 White Blood Count 7.7x10^3/uL Red Blood Count 3.67x10^6/uL Hemoglobin 7.6g/dL Hematocrit 24.9% Mean Corpuscular Volume 68fL Mean Corpuscular Hemoglobin 21pg Mean Corpuscular Hemoglobin Concent 30g/dL Red Cell Distribution Width 18.8% Platelet Count 617x10^3/uL Prothrombin Time 14.4SEC Prothromb Time International Ratio 1.2 Sodium Level 139mmol/L Potassium Level 4.5mmol/L Chloride Level 105mmol/L Carbon Dioxide Level 28mmol/L Anion Gap 6 Blood Urea Nitrogen 10mg/dL Creatinine 0.5mg/dL Estimated GFR (Cockcroft-Gault) 118.1 Glucose Level 101mg/dL Calcium Level 8.8mg/dL PE: GEN: NAD NEURO/PSYCH: asleep A/P: Colon mass (on colonoscopy w/ previous abnormal CT findings) -- Await decision re: surgery. MAURO BARBA Sep 05, 2016 13:05
--- NOTE | 2016-09-05 14:06 | PDOC ---
Provider Note Provider Note IR Note: Cleared by ID for kyphoplasty--thank you. However, Stephanie is non-fasting this afternoon---unable to provide mod sedation for kyphoplasty today. Tentatively plan T12 Kypho early next week---by Dr Wesley who is covering IR next week. Rx Kypho prior to colon resection, if patient and family decide to proceed with surgery. JAIME RITTER MD Sep 05, 2016 14:06
[2016-09-05 14:36] VITALS: BP 108/51
[2016-09-05] MEDS: AA 4.25%/CALCIUM/LYTES/D5W 1,000 ML IV SCH (16:35)
[2016-09-05 19:15] VITALS: BP 116/61
[2016-09-05 23:30] VITALS: BP 126/63
[2016-09-06 03:00] VITALS: BP 122/65
--- NOTE | 2016-09-06 03:36 | PN ---
DATE: 09/05/2016 SUBJECTIVE: The patient is resting slightly propped up in bed, in no apparent distress. She continues to complain of back pain. She apparently was informed of the tissue diagnosis. She has colon cancer and she and her daughter has to make a decision whether to go ahead for surgery and/or consider palliative care. She was seen by Dr. Oates who okayed kyphoplasty as she has received enough antibiotics. She continues to be on meropenem. PHYSICAL EXAMINATION: GENERAL: When I saw her this afternoon, she looked well and was clearly in no apparent respiratory distress, pale. No jaundice, cyanosis, or thyromegaly. No jugular venous distention. No limb edema. VITAL SIGNS: Her heart rate was 75, blood pressure was ____, temperature was 98.1, respiratory rate was 16, and oxygen saturation was 96%. HEAD, EYES, EARS, NOSE AND THROAT: Showed normocephalic, atraumatic. NECK: Supple. HEART: Showed normal first and second heart sounds. No gallop, rub or murmur. CHEST: Clear to auscultation. No crepitation or rhonchi. ABDOMEN: Distended with tympanitic percussion note. No guarding or rigidity. No organomegaly. Hernial orifices intact. Bowel sounds normal. NEUROLOGIC: She is awake, alert, responding appropriately. Cranial nerves intact. She moves extremities without difficulty; however, she is mostly bed bound and chair bound. Her intake over the last 24 hours was 1920, output was 4550. LABORATORY DATA: This morning showed white cell count 7700, hemoglobin 7.6, hematocrit 25, MCV 68 and platelet count of 617,000. Serum sodium was 139, potassium 4.5, chloride 105, bicarbonate 28, anion gap of 6, BUN 10, creatinine 0.5, estimated GFR was 118 mL per minute. Her glucose 101, calcium was 8.8. Total bilirubin, AST, ALT, alkaline phosphatase were normal. Total protein was 5.5, albumin 2.3. ASSESSMENT: 1. Urinary tract infection, on IV meropenem. 2. Acute T12 compression fracture. However, Dr. Yancey postponed the procedure until the infection is treated. 3. Aneurysmal dilatation of the splenic flexure of the colon measuring 9 x 6.5 cm with wall thickening, enhancement and wide surrounding inflammation. She had had colonoscopy and apparently the biopsy is consistent with adenocarcinoma of the colon, although I have not seen the actual report myself. 4. She has also severe microcytic hypochromic anemia consistent with iron deficiency anemia. 5. Severe protein calorie malnutrition, serum albumin is only 2.3 mg/dL. PLAN: I will consult Dr. Yancey for scheduling kyphoplasty to alleviate the pain. She and her daughter has to make the decision whether to go for surgery or to consider palliative care. NISHANT KUO MD DR: DINORA/gabe JOB#: [id number] / [id number]
[2016-09-06] MEDS: FENTANYL PF 100 MCG/2 ML VIAL. IV PRN ×2 (05:27→13:34)
[2016-09-06] MEDS: AA 4.25%/CALCIUM/LYTES/D5W 1,000 ML IV SCH ×2 (05:30→17:25)
[2016-09-06] MEDS: MEROPENEM 500 MG in IV NORMAL SALINE 50ML 50 ML IV SCH ×3 (05:30→22:15)
[2016-09-06 05:56] LABS: CALCIUM 8.8 mg/dL (8.5-10.1); CREATININE 0.5 mg/dL (0.6-1.0); GFR 118.1; POTASSIUM 4.6 mmol/L (3.5-5.1)
[2016-09-06 07:00] VITALS: BP 109/52
--- NOTE | 2016-09-06 08:38 | PDOC ---
AGATHA NERI ADMIN PROG COORD 09/06/16 0838: SURGICAL PROGRESS NOTE Subjective she has decided against surgery daughter present Vital Signs Vital Signs Date Time Temp Pulse Resp B/P Pulse Ox O2 Delivery O2 Flow Rate FiO2 09/06/16 07:54 16 Room Air 09/06/16 07:00 98.2 76 109/52 94 98.2 I&O Intake and Output 09/06/16 07:00 Intake Total 1205 ml Output Total 3150 ml Balance -1945 ml Intake Oral 360 ml IV Total 845 ml Output Urine Total 3150 ml # Bowel Movements 2 General: Alert, Oriented X3, Cooperative, No acute distress Abdomen: Soft Labs Laboratory Tests Test 09/05/16 04:15 09/06/16 05:10 White Blood Count 7.7x10^3/uL (4.0-11.0) Red Blood Count 3.67x10^6/uL (3.50-5.40) Hemoglobin 7.6g/dL (12.0-15.5) Hematocrit 24.9% (36.0-47.0) Mean Corpuscular Volume 68fL (79-100) Mean Corpuscular Hemoglobin 21pg (25-35) Mean Corpuscular Hemoglobin Concent 30g/dL (31-37) Red Cell Distribution Width 18.8% (11.5-14.5) Platelet Count 617x10^3/uL (140-400) Prothrombin Time 14.4SEC (11.7-14.0) Prothromb Time International Ratio 1.2 (0.8-1.1) Sodium Level 139mmol/L (136-145) 134mmol/L (136-145) Potassium Level 4.5mmol/L (3.5-5.1) 4.6mmol/L (3.5-5.1) Chloride Level 105mmol/L (98-107) 101mmol/L (98-107) Carbon Dioxide Level 28mmol/L (21-32) 30mmol/L (21-32) Anion Gap 6 (6-14) 3 (6-14) Blood Urea Nitrogen 10mg/dL (7-20) 19mg/dL (7-20) Creatinine 0.5mg/dL (0.6-1.0) 0.5mg/dL (0.6-1.0) Estimated GFR (Cockcroft-Gault) 118.1 118.1 Glucose Level 101mg/dL (70-99) 101mg/dL (70-99) Calcium Level 8.8mg/dL (8.5-10.1) 8.8mg/dL (8.5-10.1) Laboratory Tests Test 09/06/16 05:10 Sodium Level 134mmol/L (136-145) Potassium Level 4.6mmol/L (3.5-5.1) Chloride Level 101mmol/L (98-107) Carbon Dioxide Level 30mmol/L (21-32) Anion Gap 3 (6-14) Blood Urea Nitrogen 19mg/dL (7-20) Creatinine 0.5mg/dL (0.6-1.0) Estimated GFR (Cockcroft-Gault) 118.1 Glucose Level 101mg/dL (70-99) Calcium Level 8.8mg/dL (8.5-10.1) Problem List palliative care to see, dc planning surgery will sign off, available as needed Problems: LOGAN MCCAIN MD 09/06/16 0944: SURGICAL PROGRESS NOTE Assessment/Plan Pt seen and examined. Agree with Ms. Neri's note D/w pt and pt's daughter pt not interested in surgery will sign off, but please call for questions Problems: AGATHA NERI APRN Sep 06, 2016 08:38 LOGAN MCCAIN MD Sep 06, 2016 09:44
[2016-09-06] MEDS: CARVEDILOL 3.125 MG TABLET PO SCH ×2 (08:39→17:25)
[2016-09-06] MEDS: GABAPENTIN 400 MG CAPSULE. PO SCH ×2 (08:39→21:27)
[2016-09-06] MEDS: MIRABEGRON 25 MG TAB.ER.24H PO SCH (08:39)
[2016-09-06] MEDS: FUROSEMIDE 40 MG TABLET PO SCH (08:39)
[2016-09-06] MEDS: OXYCODONE IR 5 MG TABLET. PO PRN ×2 (08:39→21:45)
[2016-09-06] MEDS: IV RINGERS,LACTATED 1000ML 1,000 ML IV SCH ×2 (08:40→22:00)
[2016-09-06] MEDS: ALPRAZOLAM 1 MG TABLET PO PRN ×2 (10:09→22:17)
--- NOTE | 2016-09-06 10:12 | PDOC ---
Provider Note Provider Note IR Note: Family would like to proceed with T12 Vertebral augmentation on Thursday. Will put her on IR schedule. Consent requested. NPO post MN Thursday. No blood thinners. Thank you. JAIME RITTER MD Sep 06, 2016 10:12
[2016-09-06 11:00] VITALS: BP 99/49
[2016-09-06 15:00] VITALS: BP 109/54
[2016-09-06 19:00] VITALS: BP 125/61
[2016-09-06] MEDS: CARBAMIDE PEROXIDE 6.5% OTIC SOLUTION 15ML BOTTLE. AU SCH (21:00)
[2016-09-06 23:00] VITALS: BP 118/80
--- NOTE | 2016-09-06 23:52 | PN ---
DATE: 09/06/2016 SUBJECTIVE: The patient is resting slightly propped up, sleeping comfortably in no apparent distress. She is somewhat lethargic, but arousable. Apparently, she decided against any surgical intervention, but she will go for kyphoplasty on Thursday. Her daughter is concerned about hearing loss that has progressed over the last week and I will try and see if we can find an otoscope to look if she has any impacted cerumen and to treat it with Debrox. PHYSICAL EXAMINATION: GENERAL: When I examined her, she looked pale and cachectic. No jaundice, cyanosis, or thyromegaly. No jugular venous distention. No limb edema. VITAL SIGNS: Her heart rate was 80, blood pressure was 99/49, temperature was 98.6, respiratory rate 20, and oxygen saturation was 96%. HEAD, EYES, EARS, NOSE, AND THROAT: Showed normocephalic, atraumatic. NECK: Supple. HEART: Showed normal first and second heart sounds with no gallop, rub, or murmur. CHEST: Clear to auscultation. No crepitation or rhonchi. ABDOMEN: Distended, soft, and nontender. NEUROLOGIC: She was sleepy, but arousable. All cranial nerves intact. She moves her upper extremities to a much greater extent than the lower extremities. She is mostly bedbound and chair bound. Her intake over the last 24 hours was 1,920, output was 4,550. LABORATORY DATA: As of yesterday showed a white cell count of 7,700, hemoglobin 7.6, hematocrit 24.9, MCV 68, and platelet count of 617,000. Her chemistry showed a serum sodium of 134, potassium 4.6, chloride 101, bicarbonate 30, anion gap of 3, BUN 19, creatinine 0.5, estimated GFR was 118 mL per minute. Her glucose was 101 and calcium was 8.8. ASSESSMENT: 1. Urinary tract infection - resolved. 2. Acute T12 compression fracture - she is scheduled for kyphoplasty on Thursday. 3. 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 Apparently, the patient's family has decided against any surgical intervention. 4. Severe microcytic-hypochromic anemia, most likely due to severe iron deficiency anemia consistent with the finding of tumor in her colon. 5. Deafness in her left ear, likely due to impacted cerumen, although she was on vancomycin as that might have caused a problem. NISHANT KUO MD DR: Hemanth JOB#: [id number] / [id number]
[2016-09-07 03:16] VITALS: BP 115/61
[2016-09-07] MEDS: OXYCODONE IR 5 MG TABLET. PO PRN ×2 (05:20→17:27)
[2016-09-07] MEDS: MEROPENEM 500 MG in IV NORMAL SALINE 50ML 50 ML IV SCH ×3 (06:36→23:08)
[2016-09-07 07:00] VITALS: BP 111/38
[2016-09-07] MEDS: AA 4.25%/CALCIUM/LYTES/D5W 1,000 ML IV SCH ×2 (08:14→20:14)
[2016-09-07] MEDS: FUROSEMIDE 40 MG TABLET PO SCH (08:15)
[2016-09-07] MEDS: ALPRAZOLAM 1 MG TABLET PO PRN (08:15)
[2016-09-07] MEDS: MIRABEGRON 25 MG TAB.ER.24H PO SCH (08:16)
[2016-09-07] MEDS: CARVEDILOL 3.125 MG TABLET PO SCH ×2 (08:16→17:26)
[2016-09-07] MEDS: GABAPENTIN 400 MG CAPSULE. PO SCH ×2 (08:16→20:14)
[2016-09-07] MEDS: FENTANYL 50MCG/HR PATCH. TD SCH (08:17)
[2016-09-07] MEDS: CARBAMIDE PEROXIDE 6.5% OTIC SOLUTION 15ML BOTTLE. AU SCH ×2 (08:18→20:14)
[2016-09-07 08:59] LABS: BASO % 0 % (0-3); EOS % 2 % (0-3); HEMATOCRIT 26.5 % (36.0-47.0); LYMPH # 1.1 x10^3/uL (1.0-4.8); LYMPH % 13 % (24-48); MEAN CORPUSCULAR HEMOGLOBIN 20 pg (25-35); MEAN CORPUSCULAR HGB CONC 30 g/dL (31-37); MEAN CORPUSCULAR VOLUME 66 fL (79-100); MONO % 6 % (0-9); NEUT % 78 % (31-73); PLATELET COUNT 624 x10^3/uL (140-400); RED BLOOD COUNT 3.99 x10^6/uL (3.50-5.40); RED CELL DISTRIBUTION WIDTH 18.5 % (11.5-14.5); WHITE BLOOD COUNT 8.5 x10^3/uL (4.0-11.0)
[2016-09-07 09:15] LABS: ALBUMIN 2.5 g/dL (3.4-5.0); ALBUMIN/GLOBULIN RATIO 0.6 (1.0-1.7); CALCIUM 9.1 mg/dL (8.5-10.1); CREATININE 0.6 mg/dL (0.6-1.0); GFR 95.7; POTASSIUM 4.4 mmol/L (3.5-5.1); TOTAL BILIRUBIN 0.3 mg/dL (0.2-1.0); TOTAL PROTEIN 6.5 g/dL (6.4-8.2)
[2016-09-07 11:00] VITALS: BP 113/62
[2016-09-07] MEDS: IV RINGERS,LACTATED 1000ML 1,000 ML IV SCH (11:20)
[2016-09-07 15:00] VITALS: BP 102/57
[2016-09-07 19:00] VITALS: BP 116/51
[2016-09-07] MEDS: FENTANYL PF 100 MCG/2 ML VIAL. IV PRN (20:38)
[2016-09-07 23:30] VITALS: BP 127/62
[2016-09-08] VITALS (7 sets, daily range): BP systolic 107–134; BP diastolic 48–72
--- NOTE | 2016-09-08 01:23 | PN ---
DATE: 09/07/2016 SUBJECTIVE: The patient is resting slightly propped up in no apparent respiratory distress. She is clearly emotionally distressed with the fact that she is unable to have the surgery done for her tumor. Her pain, however, is much better controlled and she is scheduled for kyphoplasty tomorrow. PHYSICAL EXAMINATION: GENERAL: When I examined her, she looked pale, somewhat cachectic, but not jaundiced, cyanosis or thyromegaly. No jugular venous distention. No limb edema. VITAL SIGNS: Her heart rate was 84, blood pressure was 111/58, temperature was 97.5, respiratory rate was 20, and oxygen saturation was 96% on room air. HEAD, EYES, EARS, NOSE AND THROAT: Showed normocephalic, atraumatic. NECK: Supple. HEART: Showed normal first and second heart sounds with no gallop, rub or murmur. CHEST: Clear to auscultation. No crepitation or rhonchi. ABDOMEN: Distended, soft with tympanitic percussion note. No guarding or rigidity. No organomegaly. Hernial orifices intact. Bowel sounds normal. NEUROLOGIC: She is awake, alert, and somewhat hard of hearing. Otherwise, her cranial nerves intact. She moves upper extremities to much greater extent than her lower extremities. She is mostly bed bound and chair bound. Her intake was 1500, output was 2750. LABORATORY DATA: As of this morning, her white cell count was 8500, hemoglobin 8, hematocrit 26.5, MCV 66 and platelet count of 624,000. Her chemistry showed a serum sodium 137, potassium 4.4, chloride 102, bicarbonate 30, anion gap of 5, BUN 24, creatinine 0.6, estimated GFR was 95 mL per minute. Her glucose was 87, calcium was 9.1. Total bilirubin, AST, ALT, alkaline phosphatase were normal. Total protein was 6.5, albumin 2.5. ASSESSMENT: 1. Urinary tract infection, resolved. 2. Acute T12 compression fracture, scheduled for kyphoplasty tomorrow. 3. 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 Apparently, the patient and her family decided against any surgical intervention. 4. Severe microcytic hypochromic anemia, most likely due to severe iron deficiency consistent with the finding of tumor in her colon. 5. Deafness in her left ear, likely due to impacted cerumen, although she was on vancomycin that might have caused toxicity to the cochlear nerve. I did order Debrox 5% solution, 5 drops to both ears twice a day for 4 days. NISHANT KUO MD DR: DINORA/gabe JOB#: [id number] / [id number]
[2016-09-08] MEDS: FENTANYL PF 100 MCG/2 ML VIAL. IV PRN (05:45)
[2016-09-08] MEDS: MEROPENEM 500 MG in IV NORMAL SALINE 50ML 50 ML IV SCH (05:45)
[2016-09-08] MEDS ORDERED: IV RINGERS,LACTATED 1000ML 1,000 ML IV SCH (07:00)
[2016-09-08] MEDS ORDERED: FENTANYL PF 100 MCG/2 ML VIAL. IV PRN ×2 (07:00)
[2016-09-08] MEDS ORDERED: PROCHLORPERAZINE 10 MG/2 ML VIAL. IV PRN (07:00)
[2016-09-08] MEDS ORDERED: LIDOCAINE 1% 1 ML SYRINGE. ID PRN (07:00)
[2016-09-08] MEDS ORDERED: ONDANSETRON PF 4 MG/2 ML VIAL. IV PRN (07:00)
[2016-09-08] MEDS ORDERED: HYDROMORPHONE 2 MG/ML VIAL. IV PRN (07:00)
[2016-09-08] MEDS: GABAPENTIN 400 MG CAPSULE. PO SCH ×3 (08:01→21:24)
[2016-09-08] MEDS: MIRABEGRON 25 MG TAB.ER.24H PO SCH (08:01)
[2016-09-08] MEDS: FUROSEMIDE 40 MG TABLET PO SCH (08:01)
[2016-09-08] MEDS: OXYCODONE IR 5 MG TABLET. PO PRN ×2 (08:01→18:24)
[2016-09-08] MEDS: CARVEDILOL 3.125 MG TABLET PO SCH ×2 (08:02→18:25)
[2016-09-08] MEDS: CARBAMIDE PEROXIDE 6.5% OTIC SOLUTION 15ML BOTTLE. AU SCH ×2 (08:02→21:00)
--- NOTE | 2016-09-08 09:00 | PDOC ---
Infectious Disease Note Subjective Subjective Awaiting surgery this afternoon. Back pain better this morning, but leg pain is worse with decrease gabapentin dose. Hearing the same Daughter at bedside. ROS ROS GEN: Denies fevers, chills, sweats HEENT: Denies blurred vision, sore throat CV: Denies chest pain RESP: Denies shortness of air, cough GI: Denies n/v/d NEURO: Denies confusion, dizziness MSK: Denies weakness, joint pain/swelling Vital Sign Vital Signs Vital Signs Date Time Temp Pulse Resp B/P Pulse Ox O2 Delivery O2 Flow Rate FiO2 09/08/16 08:02 84 131/64 09/08/16 08:01 16 Room Air 09/08/16 03:08 97.7 92 97.7 Physical Exam PHYSICAL EXAM GENERAL: NAD, Alert, comfortable HEENT: PERRL, OC/OP NECK: Supple, no JVD, no LN LUNGS: Clear HEART: S1S2, no gallop, no murmur ABD: Soft, NT, no organomegaly, no rebound EXT: No edema, no cyanosis LOOP SEWER: Alert, oriented x 3, no focal neurologic deficit SKIN: No rash IV: ok Objective Assessment UTI -Proteus d/w micro R to quinolones/Nitrofurantoin/Tetracycline/Bactrim. Cath changed 08/27. + Kleb also now Res to Amp/Bactrim/Pip Leukocytosis ? reactive ? fracture T12/? Abd mass/UTI/Constipation. better PCN/Amox allergy - tolerates Keflex Back pain with acute T [address] abdomen with ulcerating mass on Colonoscopy per report by nursing Buttock/heal wound - going to wound care Decreasing hearing ? Vanc - h/o Gent use and ototoxicity Plan Plan of Care Discont Meropenem -after procedure Begin cefpodoxime post procedure and treat for 3 more days Awaiting kyphoplasty today D/w daughter ID to sign off ABDIAS FIGUEROA MD Sep 08, 2016 09:00
[2016-09-08] MEDS: ALPRAZOLAM 1 MG TABLET PO PRN (10:46)
--- NOTE | 2016-09-08 12:11 | PDOC ---
Subjective: Subjective: Per daughter - decided against surgery, kyphoplasty today, possibly home w/ Hospice tomorrow - says just talked to Pat/PC. Objective: Objective: PATHOLOGY REPORT * * * * * * * * FINAL DIAGNOSIS: Colon biopsies, ulcerated splenic flexure mass: - ADENOCARCINOMA, MODERATELY-WELL DIFFERENTIATED, WITH FOCAL MUCINOUS FEATURES. Vital Signs: Vital Signs Date Time Temp Pulse Resp B/P Pulse Ox O2 Delivery O2 Flow Rate FiO2 09/08/16 08:02 84 131/64 09/08/16 08:01 16 Room Air 09/08/16 07:00 98.1 96 98.1 PE: GEN: NAD NEURO/PSYCH: A & O 3 A/P: Colon cancer, biopsy of sigmoid mass shows adenocarcinoma -- Decided against surgery, home w/ Hospice. MAURO BARBA Sep 08, 2016 12:11
[2016-09-08] MEDS ORDERED: MEROPENEM 500 MG in IV NORMAL SALINE 50ML 50 ML IV SCH (14:00)
[2016-09-08] MEDS: AA 4.25%/CALCIUM/LYTES/D5W 1,000 ML IV SCH ×2 (15:00→18:53)
[2016-09-08] MEDS ORDERED: IOHEXOL 300 MG/ML 50 ML VIAL. ONE (15:19)
[2016-09-08] MEDS ORDERED: LIDOCAINE 1% / SOD BICARB 8.4% 20 ML VIAL. IJ ONE ×2 (15:19→16:00)
[2016-09-08] MEDS ORDERED: MIDAZOLAM HCL/PF 5 MG/5 ML VIAL ONE (15:21)
[2016-09-08] MEDS ORDERED: FENTANYL PF 250 MCG/5 ML VIAL. ONE (15:21)
[2016-09-08] MEDS ORDERED: FENTANYL PF 250 MCG/5 ML VIAL. IV ONE (16:00)
[2016-09-08] MEDS ORDERED: MIDAZOLAM HCL/PF 5 MG/5 ML VIAL IV ONE (16:00)
[2016-09-08] MEDS ORDERED: IOHEXOL 300 MG/ML 50 ML VIAL. IART ONE (16:00)
--- NOTE | 2016-09-08 16:12 | PDOC ---
MODERATE SEDATION ASSESSMENT RISKS/ALTERNATIVES Risks/Alternatives Risks and alternatives of this type of sedation and procedure discussed with: RISK/ALTERNATIVES: Patient H & P ON CHART H & P H & P on chart and reviewed for co-morbid conditions and appropriate labs. H&P ON CHART: Yes STATUS PREG STATUS ASSESSED: Yes MEDS/ALLERGIES REVIEWED Meds/Allergies Reviewed Medications and Allergies including time and route of recently administered narcotics and sedatives. MEDS/ALLERGIES REVIEWED: Yes ASA RATING ASA RATING: II AIRWAY ASSESSMENT Airway Assessment Airway patency, oral function limitations, presence of caps, crowns, dentures, partials, and ability to extend neck assessed. AIRWAY ASSESSMENT: Yes MALLAMPATI SCORE MALLAMPATI SCORE: II PRE-SEDATION ASSESSMENT PRE-SEDATION ASSESSMENT: Yes NAKUL LOWE MD Sep 08, 2016 16:12
--- NOTE | 2016-09-08 16:13 | PDOC ---
BRIEF OPERATIVE NOTE Pre-Op Diagnosis T12 compression fracture Post-Op Diagnosis same Procedure Performed T12 kyphoplasty Surgeon Lupillo Anesthesia Type: Conscious Sedation Findings T 12 compression fracture Complications No immediate NAKUL LOWE MD Sep 08, 2016 16:13
--- NOTE | 2016-09-08 18:38 | PDOC2 ---
PALLIATIVE CARE Palliative Care Note Palliative Care Consult requested by Dr. Oates to address plan of care Diagnosis; Urinary tract infection, resolved. Acute T12 compression fracture--schedule for kyphoplasty today; Colon cancer--adenocarcinoma--has decided agains surgery anemia, deafness left ear Patient uncomfortable. Requested to speak with daughter. Spoke with Laura. Confirms patient does not want surgery.Kyphoplasy scheduled today. Plan Home with Hospice when discharge. Outside the Hospital DNR/DNI form completed. SW will assist with selection of Hospice and discharge plan post surgery today. Plan: Kyphoplasty today Home with Hospice when discharged. DANIEL ROSE Sep 08, 2016 18:38
[2016-09-08] MEDS: CEFPODOXIME PROXETIL 100 MG TABLET PO SCH ×2 (21:00→21:25)
[2016-09-09] MEDS: FENTANYL PF 100 MCG/2 ML VIAL. IV PRN ×2 (00:32→09:09)
--- NOTE | 2016-09-09 00:41 | PN ---
DATE: 09/08/2016 SUBJECTIVE: The patient is resting slightly propped up in bed, in no apparent respiratory distress. She continued to complain of back pain. She is scheduled for kyphoplasty today and hopefully she can be discharged home with home health. PHYSICAL EXAMINATION: GENERAL: When I saw her this morning, she looked pale, somewhat cachectic, but no jaundice, cyanosis or thyromegaly. No jugular venous distension. No limb edema. VITAL SIGNS: Her heart rate was 83, blood pressure was 120/52, temperature was 98.1, respiratory rate was 18 and oxygen saturation was 96%. HEAD, EYES, EARS, NOSE AND THROAT: Showed normocephalic, atraumatic. NECK: Supple. HEART: Showed normal first and second heart sounds with no gallop, rub or murmur. CHEST: Clear to auscultation. No crepitation or rhonchi. ABDOMEN: Distended, soft with tympanitic percussion note. No guarding or rigidity. No organomegaly. Hernial orifices intact. Bowel sounds normal. NEUROLOGIC: She is awake, alert, responding appropriately. She moves upper extremities to much greater extent than lower extremities. She is mostly bedbound, chair bound. Her intake was 2200, output was 2750. LABORATORY DATA: Her most recent white cell count was 8500, hemoglobin 8, hematocrit 26.5, MCV 66 and platelet count of 624,000. Her chemistry showed a serum sodium 137, potassium 4.4, chloride 102, bicarbonate 30, anion gap of 5, BUN 24, creatinine 0.6, estimated GFR was 96 mL per minute. Her glucose was 87, calcium was 9.1. Total bilirubin, AST, ALT were normal. Alkaline phosphatase slightly elevated. Her total protein was 6.5, albumin was 2.5. ASSESSMENT: 1. Urinary tract infection growing Proteus mirabilis, resistant to quinolone, nitrofurantoin, tetracycline and Bactrim. 2. T12 compression fracture, scheduled for kyphoplasty this morning. She has a colonoscopy done for ulcerating mass. The patient and her daughter are apparently refusing any surgery at this time. PLAN: Await the kyphoplasty and we will start her on oral diet and hopefully discharge her home tomorrow with home health. NISHANT KUO MD DR: DINORA/gabe JOB#: [id number] / [id number]
[2016-09-09] MEDS: OXYCODONE IR 5 MG TABLET. PO PRN (02:40)
[2016-09-09 03:47] VITALS: BP 113/58
[2016-09-09 05:09] LABS: BASO % 0 % (0-3); EOS % 1 % (0-3); HEMATOCRIT 26.5 % (36.0-47.0); LYMPH # 1.1 x10^3/uL (1.0-4.8); LYMPH % 11 % (24-48); MEAN CORPUSCULAR HEMOGLOBIN 20 pg (25-35); MEAN CORPUSCULAR HGB CONC 30 g/dL (31-37); MEAN CORPUSCULAR VOLUME 66 fL (79-100); MONO % 7 % (0-9); NEUT % 80 % (31-73); PLATELET COUNT 502 x10^3/uL (140-400); RED BLOOD COUNT 3.99 x10^6/uL (3.50-5.40); RED CELL DISTRIBUTION WIDTH 17.9 % (11.5-14.5); WHITE BLOOD COUNT 9.7 x10^3/uL (4.0-11.0)
[2016-09-09 05:31] LABS: CALCIUM 9.4 mg/dL (8.5-10.1); CREATININE 0.6 mg/dL (0.6-1.0); GFR 95.7; POTASSIUM 4.3 mmol/L (3.5-5.1)
[2016-09-09 07:00] VITALS: BP 117/52
[2016-09-09] MEDS: MIRABEGRON 25 MG TAB.ER.24H PO SCH (09:04)
[2016-09-09] MEDS: FUROSEMIDE 40 MG TABLET PO SCH (09:04)
[2016-09-09] MEDS: CARVEDILOL 3.125 MG TABLET PO SCH (09:04)
[2016-09-09] MEDS: GABAPENTIN 400 MG CAPSULE. PO SCH (09:04)
[2016-09-09] MEDS: CEFPODOXIME PROXETIL 100 MG TABLET PO SCH (09:04)
[2016-09-09] MEDS: AA 4.25%/CALCIUM/LYTES/D5W 1,000 ML IV SCH (09:11)
[2016-09-09] MEDS: CARBAMIDE PEROXIDE 6.5% OTIC SOLUTION 15ML BOTTLE. AU SCH (09:15)
[2016-09-09 11:08] VITALS: BP 118/63
--- NOTE | 2016-09-09 14:20 | DS ---
DATE OF DISCHARGE: 09/09/2016 HOSPITAL COURSE: The patient is an 80-year-old female patient who was originally seen at [facility] with a complaint of back pain and UTI; however, CT scan of the lumbar spine showed T12 compression fracture. She was also found to have aneurysmal dilatation of the splenic flexure of the colon which was about 9 x 6.5 cm. There is mild wall thickening throughout the colon. Therefore, she was transferred to [facility] where we did consult Dr. Yancey for kyphoplasty although initially he did not do the procedure as she was still on antibiotics. She has had a colonoscopy and was found to have a splenic flexure ulcerative mass the biopsy of which was consistent with adenocarcinoma. She completed the IV antibiotics and she was seen by Dr. Yancey, underwent kyphoplasty successfully. The patient and family opted not to do any surgery for her colon cancer and decision was made to discharge her home today with home health. PHYSICAL EXAMINATION: GENERAL: When I saw her this morning, she was resting slightly propped up in bed, in no apparent respiratory distress, pale, but no jaundice, cyanosis or thyromegaly. No jugular venous distension. No limb edema. VITAL SIGNS: Her heart rate was 83, blood pressure was 117/52, temperature was 98.3, respiratory rate was 18 and oxygen saturation was 99% on room air. The rest of clinical examination is unremarkable, has not really changed. LABORATORY DATA: Her white cell count was 9700, hemoglobin 8, hematocrit 26.5, MCV 66 and platelet count of 502,000. Her serum sodium was 137, potassium 4.3, chloride 100, bicarbonate 28, anion gap of 9, BUN 27, creatinine 0.6, estimated GFR was 96 mL per minute. Her glucose was 121, calcium was 9.4. DISCHARGE MEDICATIONS: She will be discharged home to continue on her acetaminophen, Tylenol 650 mg every 4 hours, alprazolam 1 mg every 6 hours, aspirin 81 mg once a day, carvedilol 3.125 mg twice a day, Colace 250 mg at bedtime, fentanyl citrate 50 mcg per hour topically q. 72 hours, ferrous sulfate 325 mg once a day, furosemide 40 mg once a day, gabapentin 800 mg 3 times a day, Myrbetriq 25 mg daily, nitroglycerin 0.4 mg sublingually as needed, oxycodone 20 mg every 8 hours as needed, polyethylene glycol 17 grams daily, potassium chloride 20 mEq once a day. ASSESSMENT AND PLAN: 1. Urinary tract infection, resolved. 2. Acute T12 compression fracture status post kyphoplasty. 3. Aneurysmal dilatation of the splenic flexure with colonoscopy showing ulcerated mass consistent with adenocarcinoma; however, the patient and her family decided against any surgical intervention. Other problems including coronary artery disease, hypertension, spinal cord aneurysm, paraparesis, chronic urinary incontinence, chronic indwelling Almodovar catheter, frequent urinary tract infection, osteoporosis. NISHANT KUO MD DR: DINORA/gabe JOB#: [id number] / [id number]
--- NOTE | 2016-09-09 14:58 | PDOC2 ---
PALLIATIVE CARE Palliative Care Note Palliative Care Patient resting. Daughter not in room Patient discharged. Plan for Hospice to follow at home HH orders changed to Hospice at home. DANIEL ROSE Sep 09, 2016 14:58
--- NOTE | 2016-09-10 09:23 | RAD ---
Procedure: Kyphoplasty of T12 Clinical Indication: 80-year-old female with debilitating wedge compression fracture of T12 Sedation: Conscious sedation was administered for 26 minutes. The patient was monitored by a qualified independent observer throughout the time of sedation. Please refer to the medical record for exact doses of medications utilized to achieve moderate sedation. Antibiotics: Antibiotic was administered intravenously within 1 hour of the procedure start time. Exposure: Kerma-Area Product: 511.7 uGycm2 Contrast: None Sterility: All elements of maximal sterile barrier technique including the use of a cap, mask, sterile gown, sterile gloves, large sterile sheet, appropriate hand hygiene, and 2% chlorhexidine for cutaneous antisepsis (or acceptable alternative antiseptic per current guidelines) were followed for this procedure. Consent: The procedure was explained in its entirety to the patient or the patients designated passenger service representative by a member of the treatment team, including a discussion of the risks, benefits and commonly accepted alternatives to the procedure, as well as the expected consequences of no therapy whatsoever. Discussion of the risks included, but was not limited to, those that are most frequent and those that are rare but possibly severe or life-threatening, as well as the possibility of unforeseen complications. Technique and Findings: Following informed consent, the patient was prepped and draped in usual sterile fashion. 1% lidocaine was used to achieve local anesthesia over the left paraspinal soft tissues. A small dermatotomy was made. Under fluoroscopic guidance, a 10-gauge kyphoplasty needle was advanced to the left paraspinal fashion to the anterior aspect of the T12 vertebral body. A transpedicular approach was intentionally avoided to reduce likelihood of complication associated with the known expansile epidural cyst. A balloon was then used to create a cavity within the vertebral body and polymethylmethacrylate was instilled into the interstices of the bone. The needle was then removed and hemostasis was achieved with manual compression. 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 Complications: No immediate Impression: 1. Kyphoplasty of T12 as described.
== END 2016-09-09 15:05 | disposition hospice, home (50) | DRG 515 ==
LOC: 4 NORTH 15:35
PROVIDERS: ADMIT Internal Medicine; ATTEND Internal Medicine
PROC: 0DBE8ZX Excision of Large Intestine, Via Natural or Artificial Opening Endoscopic, Diagnostic (ICD-10-PCS; 2016-09-03)
PROC: 0PS43ZZ Reposition Thoracic Vertebra, Percutaneous Approach (ICD-10-PCS; principal; 2016-09-08)
PROC: 0PU43JZ Supplement Thoracic Vertebra with Synthetic Substitute, Percutaneous Approach (ICD-10-PCS; 2016-09-08)
DX: M48.54XA Collapsed vertebra, not elsewhere classified, thoracic region, initial encounter for fracture (principal); E43 Unspecified severe protein-calorie malnutrition; C18.5 Malignant neoplasm of splenic flexure; N39.0 Urinary tract infection, site not specified; C85.90 Non-Hodgkin lymphoma, unspecified, unspecified site; D50.9 Iron deficiency anemia, unspecified; F41.9 Anxiety disorder, unspecified; G89.29 Other chronic pain; H91.90 Unspecified hearing loss, unspecified ear; I10 Essential (primary) hypertension; K59.09 Other constipation; I25.10 Atherosclerotic heart disease of native coronary artery without angina pectoris; M81.0 Age-related osteoporosis without current pathological fracture; N28.1 Cyst of kidney, acquired; R32 Unspecified urinary incontinence; Z51.5 Encounter for palliative care; I25.2 Old myocardial infarction; Z87.440 Personal history of urinary (tract) infections; Z88.0 Allergy status to penicillin; Z95.5 Presence of coronary angioplasty implant and graft; Z79.899 Other long term (current) drug therapy; Z79.82 Long term (current) use of aspirin; K64.8 Other hemorrhoids; K57.30 Diverticulosis of large intestine without perforation or abscess without bleeding
CPT/HCPCS: 22513; 36415; 72158; 80048; 80053; 80202; 82728; 83540; 83550; 83615; 85007; 85014; 85018; 85027; 85610; 86850; 86900; 86901; 86920; 88305; C1758; C1892; J1956; J2185; J2250; J2405; J2704; J3010; J3370; J3490; J7050; J7120; Q9967; A9585; J7030